=== PATIENT | male | born 1930 | race Caucasian/White ===

== ENCOUNTER 2016-08-01 14:30 | Inpatient (IN) | payer OTHER ==
[~2016-08-01] VITALS: Ht 180.3 cm; Wt 92.6 kg
--- NOTE | 2016-08-01 15:34 | DIAGNOSTIC IMAGING REPORT ---
PROCEDURE: XR CHEST 2 VIEW INDICATION: SHORTNESS OF BREATH TECHNIQUE: PA and lateral views. COMPARISON: Chest 03/28/2015 and 01/02/2010 FINDINGS: New right upper lobe and right lower lobe infiltrates. There is also a right pleural effusion. Left lung is clear and unchanged with the previously described a pleural plaque. Heart size is normal. IMPRESSION: 1. New right upper lobe right lower lobe infiltrates with a right pleural effusion.
--- NOTE | 2016-08-01 16:19 | ED ORDER SUMMARY ---
..... Patient: SUHAIL BILLS OrderSheet Located Within [facility] VisitID: [id number] [place] [address] 86y, M Registration Date/Time: 08/01/2016 ORDER SHEET Weight: 90.7 kg Allergies: Penicillins, Wellbutrin GENERAL ORDERS: Chest 2V Urgent (14:58 08/01/2016 Escobar MAYBERRY) (Ack 15:10 Immune Designouse ER Tech1) (16:21 SRoberts R.N.) Mold Shaker (Continuous) (14:58 08/01/2016 Escobar MAYBERRY) (15:11 SRoberts R.N.) CBC w Diff Urgent (14:58 08/01/2016 Escobar MAYBERRY) (Ack 15:10 kontoblick ER Bran) (16:20 SRoberts R.N.) CMP Urgent (14:58 08/01/2016 Escobar MAYBERRY) (Ack 15:10 kontoblick ER TechEddie) (16:20 SRoberts R.N.) UA-Culture if indicated Urgent (14:58 08/01/2016 Escobar MAYBERRY) (Ack 15:10 kontoblick ER Barn) (17:10 SRoberts R.N.) PT with INR Urgent (14:58 08/01/2016 Escobar MAYBERRY) (Ack 15:10 Immune Designouse ER Bran) (16:20 SRoberts R.N.) PTT Urgent (14:58 08/01/2016 Escobar MAYBERRY) (Ack 15:10 Immune Designouse ER Bran) (16:20 SRoberts R.N.) BNP Urgent (14:58 08/01/2016 Escobar MAYBERRY) (Ack 15:10 Immune Designouse ER Bran) (16:20 SRoberts R.N.) Amylase Urgent (14:58 08/01/2016 Escobar MAYBERRY) (Ack 15:10 Immune Designouse ER Bran) (16:20 SRoberts R.N.) Lipase Urgent (14:58 08/01/2016 Escobar MAYBERRY) (Ack 15:10 Immune Designouse ER TechEddie) (16:20 SRoberts R.N.) CPK Urgent (14:58 08/01/2016 Escobar MAYBERRY) (Ack 15:10 NDouse ER Tech1) (16:20 SRoberts R.N.) Troponin-I Urgent (14:58 08/01/2016 Escobar MAYBERRY) (Ack 15:10 NDouse ER Tech1) (16:20 SRoberts R.N.) Pulse oximeter (14:58 08/01/2016 Escobar MAYBERRY) (15:10 SRoberts R.N.) EKG - ER Stat (14:58 08/01/2016 Escobar MAYBERRY) (15:04 [facility] ER Tech1) Oxygen (2 L/min) (NC) (14:58 08/01/2016 Escobar MAYBERRY) (15:11 SRoberts R.N.) PCT (Procalcitonin) Urgent (14:59 08/01/2016 Escobar MAYBERRY) (Ack 15:10 NDouse ER Tech1) (16:21 SRoberts R.N.) Blood Culture (No) (N/A) Urgent (16:09 08/01/2016 Escobar MAYBERRY) (Ack 16:11 NDouse ER Tech1) (16:40 [facility] ER Tech1) MEDICATION ORDERS: DuoNeb Neb Tx 1 unit dose (NOW) (16:24 08/01/2016 Escobar MAYBERRY) (Ack 16:54 Miquel R.N.) (16:59 SRoberts R.N.) IV FLUIDS: IV Saline Lock (14:58 08/01/2016 Escobar MAYBERRY) (16:20 SRoberts R.N.) Solu-MEDROL IV 125 mg (NOW) (16:24 08/01/2016 Escobar MAYBERRY) (Ack 16:42 SRoberts R.N.) (16:56 SRoberts R.N.) Levaquin IV 750 mg/150 mL (NOW) (16:25 08/01/2016 Escobar MAYBERRY) (Ack 16:42 SRoberts R.N.) (17:00 SRoberts R.N.) ORDER SHEET NOTES: [Electronically signed by Deja Samyaoa R.N. (19:26 08/01/2016)] [Electronically signed by Deja Samayoa R.N. (19:28 08/01/2016)] [Electronically signed by Rojas Baptiste MD (04:40 08/03/2016)] [Electronically locked/signed by Deja Samayoa R.N. (19:26 08/01/2016)]
--- NOTE | 2016-08-01 16:19 | ED NURSING NOTES ---
Clinical Report - Nurses [facility] [address] [place] [address] 08/01/2016 14:32 Patient: SUHAIL BILLS TRIAGE Triage time 14:44. Acuity: LEVEL 3. Chief Complaint: COUGH and BACK PAIN and "HURTS ALL OVER" (coughing, spitting lt greenish/yellow, stuffy nose.). Alert. No acute distress. SEPSIS SCREEN: Sepsis Screen: negative. Negative (no infection suspected/documented). --14:55 Deja Samayoa R.N. 14:44 08/01/16. BP: 131/82. HR: 83. RR: 18. O2 saturation: 93%. Temp: 98.2 F. Pain level now: 8/10. Additional comments: hx of back pain . --14:55 Deja Samayoa R.N. Weight: 90.7 kg. Height/Length: 71 inches. BMI: 27.9. --14:53 Deja Samayoa R.N. Medications ASA Oral 81 mg q day. Calcium + D Oral. Carvedilol Oral (Tablet 3.125 mg) 1 tablet, BID. Fish Oil Oral. HCTZ 25 mg q day. Lipitor Oral 10 mg, daily. Lisinopril Oral 40 mg, daily. Vitamin D Oral. --14:49 Deja Samayoa R.N. Vitamins/Minerals Oral. --14:49 Deja Samayoa R.N. Medication/allergy information source: the patient. --14:55 Deja Samayoa R.N. Allergies Penicillins. Wellbutrin. --14:49 Deja Samayoa R.N. History Arrived by private vehicle. Historian: patient. Accompanied by family. Primary physician (Harpreet). Onset. (11 days ago). He has had chest congestion, chills and fatigue. Reports muscle aches. 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 PAST MEDICAL HX: Immunizations: status is unknown. SOCIAL HX: Smoker- current status unknown. No alcohol use or drug use. FALL RISK ASSESSMENT: Fall risk assessment completed. No fall risk identified. NUTRITIONAL RISK ASSESSMENT: The nutritional risk assessment revealed no deficiencies. FUNCTIONAL ASSESSMENT: Functional assessment: no impairments noted. LEARNING NEEDS ASSESSMENT: The learning needs assessment revealed no barriers. SKIN INTEGRITY ASSESSMENT: Skin integrity risk assessment completed. No skin integrity risk identified. --14:55 Deja Samayoa R.N. PROBLEMS: Sciatica. Bladder cancer. Hypertension. Hypercholesterolemia. Diabetes Mellitus. 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 --14:50 Deja Samayoa R.N. Chest Wall Pain [RuleOut]. --14:50 Deja Samayoa R.N. Cataracts. Rnee, rt. Hernia. Carpel tunnel rt . --14:52 Deja Samayoa R.N. ADDITIONAL SURGERIES: Abdominal Aortic Aneurysm Repair. Bladder tumor removal. Colonoscopy. Hernia Repair. Knee Surgery. --14:50 Deja Samayoa R.N. Interventions ID band on patient. To room. --14:55 Deja Samayoa R.N. PHYSICAL ASSESSMENT Ambulatory to room. Patient gowned. GENERAL / NEURO / PSYCH: Alert. Oriented X 4. Appears in pain and anxious. HEENT: Voice within normal limits. Mucous membranes are pink. RESPIRATORY: Respirations not labored. CVS: Capillary refill less than 2 seconds. SKIN: Skin is warm and dry. Normal skin turgor. --14:55 Deja Samayoa R.N. NURSING PROGRESS NOTES Pulse oximeter placed on patient; monitor alarms on. Patient gowned. Head of bed elevated. Two patient identifiers checked. Call light placed in reach. Side rails up x 2. Bed placed in lowest position. Brakes of bed on. Patient ready for evaluation. --14:56 Deja Samayoa R.N. EKG time: (1515). EKG was ordered, performed by a tech and shown to the ED physician. --15:18 Oneida Raphael ER Tech1 15:10 08/01/2016 Site #1 started via IV in the right forearm with an 20g angiocath, with aseptic technique and good blood return; one attempt. Blood drawn: rainbow set. Labeled in the presence of the patient and sent to the lab. Saline lock flushed with 10 mL saline. --16:20 Deja Samayoa R.N. 16:30 08/01/2016 Duoneb (Ipratropium-Albuterol) Neb TX 1 unit dose given. Given by the respiratory therapist. Allergies verified and confirmed 5 rights. --16:59 Deja Samayoa R.N. 16:50 08/01/2016 SOLU-MEDROL (MethylPREDNISolone Sodium Succ) IVP 125 mg given over 1 minute(s) via site #1. Allergies verified and confirmed 5 rights. IV patency established. IV site checked: no pain, redness, or swelling. IV flushed thoroughly pre- and post-medication administration. IVP given by RN. --16:56 Deja Samayoa R.N. 16:52 08/01/2016 Started 750 mg of Levaquin (Levofloxacin) IVPB in bag #1 100 mL; at 150 mL/hr over 90 minute(s) via site #1 via IV pump. Allergies verified and confirmed 5 rights. IV patency established. IV site checked: no pain, redness, or swelling. IV flushed thoroughly pre- and post-medication administration. --17:00 Deja Samayoa R.N. 17:45 08/01/16. BP: 111/59. HR: 58. RR: 16. O2 saturation: 100% on nasal cannula at 2 liters/minute. Temp: deferred. Pain level now: 2/10. Additional comments: Chronis back pain . 16:04 08/01/16. BP: 118/76. HR: 64. RR: 18. O2 saturation: 99% on nasal cannula at 2 liters/minute. --17:46 Deja Samayoa R.N. 18:46 08/01/2016 Levaquin IVPB Discontinued: bag #1 infused. Total amount infused: 100 mL. IV patency established. IV site checked: no pain, redness, or swelling. IV flushed thoroughly. --18:46 Deja Samayoa R.N. DISPOSITION / DISCHARGE Transported via stretcher by [employer]. Report was given to a nurse via a phone call. Report included patient's care, treatment, medications, reviewed medication reconcilliation, and condition (including any recent changes or anticipated changes). (HERMANN Suero). Patient's personal items include: shirt, pants, undergarments, coat, socks, shoes, hat, glasses and upper denture and lower denture, Wallet home with the son.; items were placed in belongings bag and transported with the patient. Collection of belongings was witnessed by 1 nurse. He did not have a wallet. Medication list reviewed and validated. --18:40 Deja Samayoa R.N. 17:45 08/01/16. BP: 111/59. HR: 58. RR: 16. O2 saturation: 100% on nasal cannula at 2 liters/minute. Temp: deferred. Pain level now: 08/24. Additional comments: Chronis back pain . 16:04 08/01/16. BP: 118/76. HR: 64. RR: 18. O2 saturation: 99% on nasal cannula at 2 liters/minute. 14:44 08/01/16. BP: 131/82. HR: 83. RR: 18. O2 saturation: 93%. Temp: 98.2 F. Pain level now: 02/21. Additional comments: hx of back pain . --18:40 Deja Samayoa R.N. 18:41 08/01/16. BP: 116/78 taken while sitting. HR: 65. RR: 18. O2 saturation: 96%. Temp: deferred. Pain level now: 09/21. --18:41 Deja Samayoa R.N. Departure time: 1907. --19:27 Deja Samayoa R.N. Locked/Released at 08/01/2016 19:28 by Deja Samayoa R.N.
--- NOTE | 2016-08-01 16:19 | ED CLINICAL REPORT ---
Clinical Report - Physicians/Mid Levels [facility] [address] [place] [address] 08/01/2016 14:32 Patient: SUHAIL BILLS Time Seen: 14:58. Arrived- By private vehicle. Historian- patient. HISTORY OF PRESENT ILLNESS Chief Complaint: DYSPNEA. This started about 10 days ago and is still present. It was gradual in onset and has been constant and waxing/waning. The dyspnea is described as moderate. The patient has had a cough, wheezing and dyspnea on exertion. He has had moderate amounts of yellow, green sputum. No fever, sweating episodes, chills or chest pain or discomfort. No calf pain, foot swelling, dizziness or palpitations. REVIEW OF SYSTEMS No chills, sweats, calf pain, chest pain or pedal edema. No palpitations, abdominal pain, constipation, diarrhea or nausea. No vomiting or urinary problems. All systems otherwise negative, except as recorded above. PAST HISTORY Problems: Cataracts. Rnee, rt. Hernia. Carpel tunnel rt . Sciatica. Bladder cancer. Hypercholesterolemia. Hypertension. Diabetes Mellitus. 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 Additional Surgeries: Abdominal Aortic Aneurysm Repair. Bladder tumor removal. Colonoscopy. Hernia Repair. Knee Surgery. Medications: Vitamins/Minerals Oral. ASA Oral 81 mg q day. Calcium + D Oral. Carvedilol Oral (Tablet 3.125 mg) 1 tablet, BID. Fish Oil Oral. HCTZ 25 mg q day. Lipitor Oral 10 mg, daily. Lisinopril Oral 40 mg, daily. Vitamin D Oral. Allergies: Penicillins. Wellbutrin. SOCIAL HISTORY Former smoker. ADDITIONAL NOTES The nursing notes have been reviewed. PHYSICAL EXAM Vital Signs: 08/01/2016 14:44 BP: 131/82. HR: 83. RR: 18. O2 saturation: 93%. Temp: 98.2 F. Pain level now: 8/10. Have been reviewed. Appearance: Alert. Eyes: Pupils equal, round and reactive to light. ENT: Pharynx normal. Uvula midline. Neck: Normal inspection. No jugular venous distention. Neck supple. CVS: Normal heart rate and rhythm. 1/6 holosystolic systolic murmur. Respiratory: No respiratory distress. Decreased air movement. Abdomen: Soft and nontender. No organomegaly. Back: Normal inspection. Skin: Skin warm and dry. Normal skin color. Normal skin turgor. Extremities: Extremities exhibit normal ROM. No calf tenderness. No lower extremity edema. LABS, X-RAYS, AND EKG EKG: Incomplete RBBB. Left axis deviation. Changes present when compared to prior EKG. (28 Mar 2015). The study has been independently viewed by me. Chest X-ray: (IMPRESSION: 1. New right upper lobe right lower lobe infiltrates with a right pleural effusion.). The X-rays were interpreted by the radiologist and contemporaneously by me. Laboratory Tests: CBC w Diff: (CLAUDIA: 08/01/2016 15:15) ( MsgRcvd 08/01/2016 15:51) Final results Test Result Flag Units (Reference) WHITE BLOOD COUNT 7.8 K/uL (4.5-11.5) RED BLOOD COUNT 3.76 L M/uL (4.50-5.90) HEMOGLOBIN 11.6 L gm/dL (13.5-17.5) HEMATOCRIT 35.8 L % (41.0-53.0) MEAN CELL VOLUME 95 fL (80-100) MEAN CORPUSCULAR HGB 31 pg (26-34) MEAN CORPUSCULAR HGB CONC 32 g/dL (31-37) RED CELL DISTRIBUTION WIDTH 12.8 % (11.6-14.8) PLATELET COUNT 314 K/uL (150-400) NEUTROPHIL % 71.1 % (50-75) LYMPH % 13.4 L % (25-40) MONO % 11.5 % (3-14) EOSINOPHIL % 4.0 % (0-4) BASOPHIL % 0 % (0-2) PT with INR: (CLAUDIA: 08/01/2016 15:15) ( MsgRcvd 08/01/2016 15:53) Final results Test Result Flag Units (Reference) INR 1.1 (0.8-1.2) Low Intensity Therapy: INR 1.5-2.0 PT range 18.5-23.1Mod.Intensity Therapy: INR 2.0-3.0 PT range 23.1-31.5High Intensity Therapy: INR 2.5-3.5 PT range 27.4-35.5High Intensity Therapy 2: INR 3.0-4.0 PT range 31.5-39.3 APTT 28 SECONDS (24-34) [id number]: (CLAUDIA: 08/01/2016 15:15) ( MsgRcvd 08/01/2016 16:24) Final results Test Result Flag Units (Reference) PROCALCITONIN 4.2 H ng/mL (0-0.5) PCT Concentration: Interpretation : Risk/option for action PCT <=0.5 ng/mL : Systemic : Low risk forinfection(sepsis): progression to severeis not likely. : systemic infection.Local bacterial : CAUTION-PCT levelsinfection is : below 0.5 ng/mL do notpossible. : exclude an infection,because localizedinfections (withoutsystemic signs) may beassociated with suchlow levels. If PCT ismeasured very earlyafter a bacterialchallenge (usually <6hours), these valuesmay still be low. Inthis case PCT shouldbe re-assessed 6-24hours later. PCT >0.5 and : Systemic infection: Moderate risk for<= 2 ng/mL : (sepsis) is : progression to severepossible, but : systemic infection.other conditions : The patient should beare known to : closely monitoredelevate PCT. : both clinically andby re-assessing PCTwithin 6-24 hours. PCT > 2 ng/mL : Systemic infection: High risk for(sepsis) is likely: progression to severeunless other : systemic infection.causes are known. : PCT >= 10 ng/mL : Important systemic: High likelihood ofinflammatory : severe sepsis orresponse, almost : septic shock.exclusively due to:severe bacterial :sepsis or septic :shock. : BNP: (CLAUDIA: 08/01/2016 15:15) ( [facility] 08/01/2016 15:50) Final results Test Result Flag Units (Reference) B-TYPE NATRIURETIC PEPTIDE 139 H pg/ml (5-100) CMP: (CLAUDIA: 08/01/2016 15:15) ( [facility] [place] 08/01/2016 15:49) Final results Test Result Flag Units (Reference) GLUCOSE 166 H mg/dL (70-110) BUN 26 H mg/dL (7-18) CREATININE 1.1 mg/dL (0.6-1.3) Estimated GFR >60 mL/min Estimated GFR- >60 mL/min Note: Persistent reduction over 3 months in eGFR<60 mL/min/1.73 m2 defines CKD. Patients with eGFR values>=60 mL/min/1.73 m2 may also have CKD if evidence ofpersistent proteinuria. Additional information may be foundat www.kidney.org. SODIUM 143 mmol/L (136-145) POTASSIUM 4.2 mmol/L (3.5-5.1) CHLORIDE 104 mmol/L (98-107) CARBON DIOXIDE 31 mmol/L (21-32) CALCIUM 9.7 mg/dL (8.5-10.1) TOTAL PROTEIN 7.2 g/dL (6.4-8.2) ALBUMIN 3.0 L g/dL (3.3-5.0) BILIRUBIN, TOTAL 0.6 mg/dL (0.0-1.0) ALKALINE PHOSPHATASE 93 U/L (46-116) AST (SGOT) 24 U/L (15-37) ALT (SGPT) 19 U/L (12-78) LIPASE 92 U/L (73-393) AMYLASE 56 U/L (25-115) CPK 68 U/L (24-260) TROPONIN I <0.05 ng/mL (0.00-1.5) TROPONIN REFERENCE RANGE:<0.1 NEGATIVE0.1-1.5 INDETERMINANT>1.5 POSITIVE . PROGRESS AND PROCEDURES Course of Care: Patient is stable. Discussed case with patient's primary care provider, (Harpreet). Reviewed test results and need for additional work-up. Agreed upon treatment plan, need for patient follow-up and decision to place in observation. Health care provider will see patient in hospital. Patient/family counseled. Old medical records reviewed. Disposition orders written (in [facility]). Disposition: Admitted. Observation. CLINICAL IMPRESSION Pneumonia. (Electronically signed by Rojas Baptiste MD 08/03/2016 4:40)
--- NOTE | 2016-08-01 16:19 | ED ORDER SUMMARY ---
..... Patient: SUHAIL BILLS OrderSheet [facility] VisitID: [id number] [place] [address] 86y, M Registration Date/Time: 08/01/2016 ORDER SHEET Weight: 90.7 kg Allergies: Penicillins, Wellbutrin GENERAL ORDERS: Chest 2V Urgent (14:58 08/01/2016 Escobar MAYBERRY) (Ack 15:10 Colorescienceouse ER Tech1) (16:21 SRoberts R.N.) Product Examiner (Continuous) (14:58 08/01/2016 Escobar MAYBERRY) (15:11 SRoberts R.N.) CBC w Diff Urgent (14:58 08/01/2016 Escobar MAYBERRY) (Ack 15:10 Noosh ER Bran) (16:20 SRoberts R.N.) CMP Urgent (14:58 08/01/2016 Escobar MAYBERRY) (Ack 15:10 Noosh ER TechEddie) (16:20 SRoberts R.N.) UA-Culture if indicated Urgent (14:58 08/01/2016 Escobar MAYBERRY) (Ack 15:10 Noosh ER Bran) (17:10 SRoberts R.N.) PT with INR Urgent (14:58 08/01/2016 Escobar MAYBERRY) (Ack 15:10 Colorescienceouse ER Bran) (16:20 SRoberts R.N.) PTT Urgent (14:58 08/01/2016 Escobar MAYBERRY) (Ack 15:10 Colorescienceouse ER Bran) (16:20 SRoberts R.N.) BNP Urgent (14:58 08/01/2016 Escobar MAYBERRY) (Ack 15:10 Colorescienceouse ER Bran) (16:20 SRoberts R.N.) Amylase Urgent (14:58 08/01/2016 Escobar MAYBERRY) (Ack 15:10 Colorescienceouse ER Bran) (16:20 SRoberts R.N.) Lipase Urgent (14:58 08/01/2016 Escobar MAYBERRY) (Ack 15:10 Colorescienceouse ER TechEddie) (16:20 SRoberts R.N.) CPK Urgent (14:58 08/01/2016 Escobar MAYBERRY) (Ack 15:10 MNouse ER Tech1) (16:20 SRoberts R.N.) Troponin-I Urgent (14:58 08/01/2016 Escobar MAYBERRY) (Ack 15:10 MNouse ER Tech1) (16:20 SRoberts R.N.) Pulse oximeter (14:58 08/01/2016 Escobar MAYBERRY) (15:10 SRoberts R.N.) EKG - ER Stat (14:58 08/01/2016 Escobar MAYBERRY) (15:04 [facility] ER Tech1) Oxygen (2 L/min) (NC) (14:58 08/01/2016 Escobar MAYBERRY) (15:11 SRoberts R.N.) PCT (Procalcitonin) Urgent (14:59 08/01/2016 Escobar MAYBERRY) (Ack 15:10 MNouse ER Tech1) (16:21 SRoberts R.N.) Blood Culture (No) (N/A) Urgent (16:09 08/01/2016 Escobar MAYBERRY) (Ack 16:11 MNouse ER Tech1) (16:40 [facility] ER Tech1) MEDICATION ORDERS: DuoNeb Neb Tx 1 unit dose (NOW) (16:24 08/01/2016 Escobar MAYBERRY) (Ack 16:54 Miquel R.N.) (16:59 SRoberts R.N.) IV FLUIDS: IV Saline Lock (14:58 08/01/2016 Escobar MAYBERRY) (16:20 SRoberts R.N.) Solu-MEDROL IV 125 mg (NOW) (16:24 08/01/2016 Escobar MAYBERRY) (Ack 16:42 SRoberts R.N.) (16:56 SRoberts R.N.) Levaquin IV 750 mg/150 mL (NOW) (16:25 08/01/2016 Escobar MAYBERRY) (Ack 16:42 SRoberts R.N.) (17:00 SRoberts R.N.) ORDER SHEET NOTES: [Electronically signed by Deja Samayoa R.N. (19:26 08/01/2016)] [Electronically signed by Deja Samayoa R.N. (19:28 08/01/2016)] [Electronically signed by Rojas Baptiste MD (04:40 08/03/2016)] [Electronically locked/signed by Deja Samayoa R.N. (19:26 08/01/2016)]
[2016-08-01 19:26] VITALS: BP 138/74
--- NOTE | 2016-08-01 20:06 | HISTORY AND PHYSICAL ---
ADMITTED: 08/01/2016 CHIEF COMPLAINT: 1. Shortness of breath HISTORY OF PRESENT ILLNESS: An 86-year-old male with recent bladder cancer, presents with 10-day history of increasing shortness of breath. He states it has been getting better and worse at times, worse with exertion. It was particularly worse after a visit to his oncologist recently. He has been coughing up yellow-green sputum and has felt sweats at times. He denies fevers, chills, chest pain. He also denies swelling in the legs or palpitations. MEDICAL/SURGICAL HISTORY: Past medical history: Remarkable for bladder cancer, high blood pressure and also recent low blood pressures, diabetes, anemia, cataracts, carpal tunnel syndrome, sciatica, hyperlipidemia, basal cell carcinoma. Surgeries: Carpal tunnel surgery right hand 2004, basal cell carcinoma, left ear, left side hernia 2006, abdominal aortic aneurysm 2007, carpal tunnel left hand 2009, right knee replacement 2009, epidural steroid injections 2014, cataract both eyes 2015. The patient has also had bladder tumor removal and colonoscopies. MEDICATIONS: 1. Multivitamins 1 p.o. daily. 2. Aspirin 81 mg p.o. daily. 3. Calcium with vitamin D 1 p.o. daily. 4. Carvedilol 3.125 mg p.o. b.i.d. 5. HCTZ 25 mg p.o. daily. 6. Lipitor 10 mg p.o. daily. 7. Lisinopril 40 mg p.o. daily. 8. Vitamin D once daily. 9. Fish oil once daily. ALLERGIES: 1. PENICILLIN. 2. WELLBUTRIN. SOCIAL HISTORY: male, Kiswahili sikhism, retired. Smoking: Positive history , quit 2011. Alcohol: None. Drug use: None. Previously worked on [employer] with dust and asbestos exposure. CODE STATUS: The patient and son are present on interview and they request NO CODE STATUS. The patient does have a living will and durable power of patent prosecution attorney. FAMILY HISTORY: Father had diabetes. Mother had multiple sclerosis. Children are healthy. REVIEW OF SYSTEMS: The patient gives history of recent weight loss and pain. Skin: Denies rashes, dryness or changes. Eyes: Positive tearing. Denies pain, blurry vision, cataracts or vision loss. Ears: Denies drainage, earache, ringing, hearing loss. Nose: Denies nose bleeds, discharge or sinus pain. Mouth: Denies gum soreness, dental problems or pain. Throat: Denies hoarseness, swelling, sore throat, or trouble swallowing. Lungs: Admits to shortness of breath, cough, pneumonia, wheezing and sputum production. Heart: Admits to blood pressure, both high and low, pain in muscles with walking, shortness of breath, worse recently with lying flat. Urinary: History of bladder infection; admits to increased urination at night. Gastrointestinal: Positive for loss of appetite. Negative for GERD, diarrhea, constipation, melena, bright red blood per rectum. Joints: Positive history of stiffness, pain, muscle cramps and back ache. Neurologic: Positive for balance problems. Hematologic: Positive for anemia and easy bruising. Endocrine: Positive for diabetes. Psychological: Positive for depression, difficulty sleeping. PHYSICAL EXAMINATION: VITAL SIGNS: Blood pressure 131/82, heart rate 83, respirations 18, SaO2 93%, temperature 98.2. HEENT: Clear. NECK: Supple without adenopathy or thyromegaly. CHEST: Clear to auscultation except for some crackles in the bases and mild expiratory wheeze. HEART: Regular rate and rhythm without murmur. ABDOMEN: Positive bowel sounds. Soft, nontender, without hepatosplenomegaly or masses. BACK: Straight without CVA tenderness. EXTREMITIES: Without cyanosis, clubbing, or edema. GENITAL: Deferred. RECTAL: Deferred. NEUROLOGIC: Intact and symmetric. LAB/IMAGING: Laboratories: WBC 7.8, hemoglobin 11.6, hematocrit 35.8. INR 1.1. Procalcitonin 4.2. BNP 139. Glucose 166, BUN 26, creatinine 1.1, sodium 143, potassium 4.2, chloride 104, bicarb 31. Total bilirubin 0.6, alk phos 93, AST 24, ALT 19, amylase 56. CPK 68. Troponin less than 0.05. EKG: Shows incomplete left bundle branch block and LAD with no acute changes. Chest x-ray: Shows right lower lobe infiltrate and right pleural effusion. IMPRESSION: 1. Pneumonia. 2. Bladder cancer with ongoing treatment. 3. Diabetes mellitus. 4. Hypertension. 5. Hyperlipidemia. PLAN: Admit to [facility] for IV antibiotics, oxygen supplementation, nebulized bronchodilators, IV hydration and monitoring risks, benefits, and alternatives to treatment are discussed with patient and son. The patient is advised that while pneumonia is serious, he appears to be tolerating this relatively well and it likely will resolve with antibiotic treatment as noted above. The patient request NO CODE STATUS. This is confirmed by his son and NO CODE will be ordered. The patient will also be treated with deep venous thrombosis prophylaxis with sequential compression device treatment.
[2016-08-01 22:27] VITALS: BP 129/59
[2016-08-02] MEDS ORDERED: ASPIRIN 81 LOW81 MG PO (00:50)
[2016-08-02] MEDS ORDERED: CALCIUM + D PO (00:50)
[2016-08-02] MEDS ORDERED: CARVEDILOL3.125 MG PO (00:51)
[2016-08-02] MEDS ORDERED: FISH OIL500 MG PO (00:52)
[2016-08-02] MEDS ORDERED: HCTZ/TRIAMTEREN1 TA1 PO (00:53)
[2016-08-02] MEDS ORDERED: LIPITOR10 MG PO (00:53)
[2016-08-02] MEDS ORDERED: LISINOPRIL10 MG PO (00:54)
[2016-08-02] MEDS ORDERED: VITAMIN D-11000 UNIT PO (00:55)
[2016-08-02] MEDS ORDERED: VITAMINS & MINERALS PO (00:56)
[2016-08-02 01:55] VITALS: BP 123/59
[2016-08-02 06:19] VITALS: BP 118/61
--- NOTE | 2016-08-02 07:09 | Progress Note ---
Subjective General An 86-year-old male with DM, recent bladder cancer, and 10-day history of increasing shortness of breath. Diagnosed with pneumonia in ER, RLL. He has been coughing up yellow-green sputum and has felt sweats at times. Slept poorly last night, "but I never sleep much." Declines sleeping meds. Still coughing and feels wheezy but improved. Physical Exam Vital Signs / I&Os Vital Signs Date Time Temp Pulse Resp B/P Pulse O2 O2 Flow FiO2 Ox Delivery Rate 08/02 0619 98.2 74 18 118/61 94 Nasal 2.0 Cannula 08/02 0547 2.0 08/02 0155 98.4 70 16 123/59 93 Nasal 2.0 Cannula 08/02 0044 2.0 08/01 2344 Nasal 2.0 Cannula 08/01 2227 98.2 65 18 129/59 93 Room Air 2.0 08/01 2005 2.0 08/01 1948 66 08/01 1926 98.4 66 18 138/74 90 Room Air 08/01 1900 Nasal 2.0 Cannula 08/01 1625 2.0 I&O 08/01 0800 08/01 1600 08/02 0000 Intake Total 847 Output Total 250 Balance 597 General Appearance Alert, Oriented X3, No acute distress Lungs Bilateral crackles and wheeze. Cardiovascular Regular rate and rhythm Abdomen Soft, No tenderness Extremities No edema Skin No Rashes LAB Results Laboratory Tests 08/01 08/01 08/01 08/01 1515 1515 1515 1705 Chemistry Plasma Sodium (136 - 145 mmol/L) 143 Plasma Potassium (3.5 - 5.1 mmol/L) 4.2 Plasma Chloride (98 - 107 mmol/L) 104 CO2 (Enzymatic) (21 - 32 mmol/L) 31 BUN (7 - 18 mg/dL) 26 Creatinine (0.6 - 1.3 mg/dL) 1.1 Est GFR ( Amer) (mL/min) >60 Est GFR (Non-Af Amer) (mL/min) >60 Glucose (70 - 110 mg/dL) 166 Plasma Calcium (8.5 - 10.1 mg/dL) 9.7 Total Bilirubin (0.0 - 1.0 mg/dL) 0.6 AST (15 - 37 U/L) 24 ALT (12 - 78 U/L) 19 Alkaline Phosphatase (46 - 116 U/L) 93 Creatine Kinase (24 - 260 U/L) 68 Troponin (0.00 - 1.5 ng/mL) <0.05 B-Natriuretic Peptide (5 - 100 pg/ml) 139 Total Protein (6.4 - 8.2 g/dL) 7.2 Albumin (3.3 - 5.0 g/dL) 3.0 Amylase (25 - 115 U/L) 56 Lipase (73 - 393 U/L) 92 Procalcitonin (0 - 0.5 ng/mL) 4.2 Coagulation INR (0.8 - 1.2) 1.1 APTT (24 - 34 SECONDS) 28 Hematology WBC (4.5 - 11.5 K/uL) 7.8 RBC (4.50 - 5.90 M/uL) 3.76 Hgb (13.5 - 17.5 gm/dL) 11.6 Hct (41.0 - 53.0 %) 35.8 MCV (80 - 100 fL) 95 MCH (26 - 34 pg) 31 RDW (11.6 - 14.8 %) 12.8 Neut % (Auto) (50 - 75 %) 71.1 Lymph % (Auto) (25 - 40 %) 13.4 [place] % (Auto) (3 - 14 %) 11.5 Eos % (Auto) (0 - 4 %) 4.0 Baso % (Auto) (0 - 2 %) 0 Plt Count, EDTA (150 - 400 K/uL) 314 PUBS MCHC (31 - 37 g/dL) 32 Urines Urine Color YELLOW Urine Appearance CLEAR Urine pH (5.0 - 8.0) 5.5 Ur Specific [place] (1.010 - 1.030) >= 1.030 Urine Protein (NEGATIVE) NEGATIVE Urine Ketones (NEGATIVE) TRACE Urine Blood (NEGATIVE) NEGATIVE Urine Nitrite (NEGATIVE) NEGATIVE Urine Bilirubin (NEGATIVE) NEGATIVE Urine Urobilinogen (0.2 - 1.0 EU/dL) 0.2 Ur Leukocyte Esterase (NEGATIVE) NEGATIVE Urine RBC (0 - 1 rbc/hpf) 1-3 Urine WBC (0 - 1 wbc/hpf) 0-1 Ur Epithelial Cells (0 - 5 EPI/hpf) NONE SEEN Urine Bacteria (NONE SEEN) TRACE (<1+) Urine Glucose (NEGATIVE) NEGATIVE Urine Comment CULT NOT INDICATED 08/02 08/02 0540 0540 Chemistry Plasma Sodium (136 - 145 mmol/L) 137 Plasma Potassium (3.5 - 5.1 mmol/L) 4.3 Plasma Chloride (98 - 107 mmol/L) 101 CO2 (Enzymatic) (21 - 32 mmol/L) 26 BUN (7 - 18 mg/dL) 31 Creatinine (0.6 - 1.3 mg/dL) 1.3 Est GFR ( Amer) (mL/min) >60 Est GFR (Non-Af Amer) (mL/min) 55.63 Glucose (70 - 110 mg/dL) 284 Hemoglobin A1c % Pending Plasma Calcium (8.5 - 10.1 mg/dL) 8.5 Plasma Magnesium (1.8 - 2.4 mg/dL) 1.5 Total Bilirubin (0.0 - 1.0 mg/dL) 0.5 AST (15 - 37 U/L) 20 ALT (12 - 78 U/L) 18 Alkaline Phosphatase (46 - 116 U/L) 77 Total Protein (6.4 - 8.2 g/dL) 6.1 Albumin (3.3 - 5.0 g/dL) 2.5 Hematology WBC (4.5 - 11.5 K/uL) 7.8 RBC (4.50 - 5.90 M/uL) 3.28 Hgb (13.5 - 17.5 gm/dL) 10.2 Hct (41.0 - 53.0 %) 31.4 MCV (80 - 100 fL) 96 MCH (26 - 34 pg) 31 RDW (11.6 - 14.8 %) 13.0 Neut % (Auto) (50 - 75 %) 86.6 Lymph % (Auto) (25 - 40 %) 11.0 [place] % (Auto) (3 - 14 %) 2.2 Eos % (Auto) (0 - 4 %) 0 Baso % (Auto) (0 - 2 %) 0.2 Plt Count, EDTA (150 - 400 K/uL) 273 PUBS MCHC (31 - 37 g/dL) 32 Microbiology Date/Time Procedure - Status Source Growth 08/01 1643 Blood Culture - RECD BLOOD 08/01 163 Blood Culture - RECD BLOOD Assessment and Plan Problem List 1. Pneumonia Plan Improving on antibiotics. 2. Diabetes mellitus type 2 in nonobese Plan Stable with sliding scale. 3. Bladder cancer Plan Care per urology.
[2016-08-02 10:39] VITALS: BP 117/61
[2016-08-02 14:25] VITALS: BP 123/63
[2016-08-02 18:14] VITALS: BP 107/60
[2016-08-02] MEDS ORDERED: VITAMIN B12 PO (19:18)
[2016-08-02 22:30] VITALS: BP 110/64
[2016-08-03 01:21] VITALS: BP 130/68
--- NOTE | 2016-08-03 04:41 | ED MED RECONCILIATION SUMMARY ---
Patient: SUHAIL BILLS Medication Reconciliation Report [facility] VisitID: [id number] [address] [place] [address] 86y, M Registration Date/Time: 08/01/2016 Weight: 90.7 kg Height/Length: 71 in. BMI: 27.9 ALLERGIES: Penicillins, Wellbutrin The patient's Home Medications are listed below: THE FOLLOWING MEDICATIONS NEED TO BE RECONCILED: ASA Oral 81 mg q day Calcium + D Oral Carvedilol Oral (3.125 mg) 1 tablet, BID Fish Oil Oral HCTZ 25 mg q day Lipitor Oral 10 mg, daily Lisinopril Oral 40 mg, daily Vitamin D Oral Vitamins/Minerals Oral The source(s) of the original Home Medication information: patient The following Medications were given to the patient in the Emergency Department: SOLU-MEDROL [IVP] IVP 125 mg, administered: 08/01/2016 4:50:00 PM Duoneb [Neb Tx] Neb TX 1 unit dose, administered: 08/01/2016 4:30:00 PM Levaquin [IVPB] IVPB bolus 0, then 750 mg 150 mL/hr, administered: 08/01/2016 4:52:00 PM The following Medications were prescribed to the patient: None.
--- NOTE | 2016-08-03 04:41 | ED MAR SUMMARY ---
..... Medication Administration Record [facility] [address] [place] [address] Patient: SUHAIL BILLS Visit ID: [id number] 86y, M Weight: 90.7 kg Height/Length: 71 in BMI: 27.9 ALLERGIES: Penicillins, Wellbutrin Given 16:30 08/01/2016 Deja Samayoa R.N. Medication Administered: DUONEB [NEB TX] (IPRATROPIUM-ALBUTEROL), Dose: 1 unit dose Neb TX. Medication Ordered: DuoNeb Neb Tx 1 unit dose (NOW). Given 16:50 08/01/2016 Deja Samayoa R.N. Medication Administered: SOLU-MEDROL [IVP] (METHYLPREDNISOLONE SODIUM SUCC), Dose: 125 mg IVP over 1 minute(s), Site: #1 right forearm. Medication Ordered: Solu-MEDROL IV 125 mg (NOW). Start 16:52 08/01/2016 Deja Samayoa R.N., Stop 18:46 08/01/2016 Deja Samayoa R.N. Medication Administered: LEVAQUIN [IVPB] (LEVOFLOXACIN), Dose: 750 mg IVPB over 90 minute(s), Rate: 150 mL/hr, Dispensed: 100 mL bag, Site: #1 right forearm. Medication Ordered: Levaquin IV 750 mg/150 mL (NOW).
--- NOTE | 2016-08-03 04:41 | ED MAR SUMMARY ---
..... Medication Administration Record [facility] [address] [place] [address] Patient: SUHAIL BILLS Visit ID: [id number] 86y, M Weight: 90.7 kg Height/Length: 71 in BMI: 27.9 ALLERGIES: Penicillins, Wellbutrin Given 16:30 08/01/2016 Deja Samayoa R.N. Medication Administered: DUONEB [NEB TX] (IPRATROPIUM-ALBUTEROL), Dose: 1 unit dose Neb TX. Medication Ordered: DuoNeb Neb Tx 1 unit dose (NOW). Given 16:50 08/01/2016 Deja Samayoa R.N. Medication Administered: SOLU-MEDROL [IVP] (METHYLPREDNISOLONE SODIUM SUCC), Dose: 125 mg IVP over 1 minute(s), Site: #1 right forearm. Medication Ordered: Solu-MEDROL IV 125 mg (NOW). Start 16:52 08/01/2016 Deja Samayoa R.N., Stop 18:46 08/01/2016 Deja Samayoa R.N. Medication Administered: LEVAQUIN [IVPB] (LEVOFLOXACIN), Dose: 750 mg IVPB over 90 minute(s), Rate: 150 mL/hr, Dispensed: 100 mL bag, Site: #1 right forearm. Medication Ordered: Levaquin IV 750 mg/150 mL (NOW).
--- NOTE | 2016-08-03 04:41 | ED DISCHARGE INSTRUCTIONS ---
Patient: SUHAIL BILLS General Instructions [facility] VisitID: [id number] [address] [place] [address] 86y, M Registration Date/Time: 08/01/2016 Pneumonia. (Electronically signed by Rojas Baptiste MD 08/03/2016 4:40)
--- NOTE | 2016-08-03 04:41 | ED DISCHARGE INSTRUCTIONS ---
Patient: SUHAIL BILLS General Instructions [facility] VisitID: [id number] [address] [place] [address] 86y, M Registration Date/Time: 08/01/2016 Pneumonia. (Electronically signed by Rojas Baptiste MD 08/03/2016 4:40)
--- NOTE | 2016-08-03 04:41 | ED MED RECONCILIATION SUMMARY ---
Patient: SUHAIL BILLS Medication Reconciliation Report [facility] VisitID: [id number] [address] [place] [address] 86y, M Registration Date/Time: 08/01/2016 Weight: 90.7 kg Height/Length: 71 in. BMI: 27.9 ALLERGIES: Penicillins, Wellbutrin The patient's Home Medications are listed below: THE FOLLOWING MEDICATIONS NEED TO BE RECONCILED: ASA Oral 81 mg q day Calcium + D Oral Carvedilol Oral (3.125 mg) 1 tablet, BID Fish Oil Oral HCTZ 25 mg q day Lipitor Oral 10 mg, daily Lisinopril Oral 40 mg, daily Vitamin D Oral Vitamins/Minerals Oral The source(s) of the original Home Medication information: patient The following Medications were given to the patient in the Emergency Department: SOLU-MEDROL [IVP] IVP 125 mg, administered: 08/01/2016 4:50:00 PM Duoneb [Neb Tx] Neb TX 1 unit dose, administered: 08/01/2016 4:30:00 PM Levaquin [IVPB] IVPB bolus 0, then 750 mg 150 mL/hr, administered: 08/01/2016 4:52:00 PM The following Medications were prescribed to the patient: None.
[2016-08-03 05:49] VITALS: BP 118/64
--- NOTE | 2016-08-03 06:59 | Progress Note ---
Subjective General An 86-year-old male with DM, recent bladder cancer, and 10-day history of increasing shortness of breath. Diagnosed with pneumonia in ER, RLL. He has been coughing up yellow-green sputum and has felt sweats at times. Slept poorly again last night, "but I never sleep much." Declines sleeping meds. Coughing some. Ambulated around loja without oxygen but felt weak. Denies cp/palp/sob/dizzy. Respiratory Cough, SOB w/exertion. Physical Exam Vital Signs / I&Os Vital Signs Date Time Temp Pulse Resp B/P Pulse O2 O2 Flow FiO2 Ox Delivery Rate 08/03 0549 98.1 83 18 118/64 93 Nasal 2.0 Cannula 08/03 0350 2.0 08/03 0121 98.1 82 16 130/68 93 Nasal 2.0 Cannula 08/02 2348 2.0 08/02 2230 98.1 68 20 110/64 91 Nasal 2.0 Cannula 08/02 2009 Nasal 2.0 Cannula 08/02 1952 2.0 08/02 1814 98.2 84 18 107/60 94 Nasal 2.0 Cannula 08/02 1812 78 08/02 1707 Nasal 2.0 Cannula 08/02 1551 2.0 08/02 1425 97.7 77 18 123/63 95 Nasal 2.0 Cannula 08/02 1256 2.0 08/02 1039 98.2 81 18 117/61 93 Nasal 2.0 Cannula 08/02 0832 92 08/02 0830 2.0 08/02 0823 2.0 I&O 08/02 0800 08/02 1600 08/03 0000 Intake Total 1903 1301 526 Output Total 650 550 500 Balance 1253 751 26 General Appearance Alert, Oriented X3, Cooperative, No acute distress Lungs Few crackles in bases. Cardiovascular Regular rate and rhythm Abdomen Normal bowel sounds, Soft, No tenderness Extremities No edema Skin No Rashes Assessment and Plan Problem List 1. Pneumonia Plan Improving on antibiotics. Will wean O2. 2. Diabetes mellitus type 2 in nonobese Plan BG high on steroids. Will taper steroids. 3. Bladder cancer Plan Stable.
[2016-08-03 10:19] VITALS: BP 115/61
[2016-08-03 14:35] VITALS: BP 136/72
[2016-08-03 18:18] VITALS: BP 128/67
[2016-08-03 23:13] VITALS: BP 144/82
[2016-08-04 01:58] VITALS: BP 130/78
[2016-08-04 06:46] VITALS: BP 143/70
--- NOTE | 2016-08-04 08:12 | DIAGNOSTIC IMAGING REPORT ---
PROCEDURE: XR CHEST 2 VIEW INDICATION: pneumonia, follow-up TECHNIQUE: PA and lateral view. COMPARISON: Chest x-ray 08/01/2016 FINDINGS: No significant change in the rounded right mid lung opacity and small right basilar infiltrate with small right pleural effusion. Calcified left pleural plaques. Cardiovascular structures are normal. Bony thorax is unremarkable. IMPRESSION: 1. No significant change in the right mid lung then opacity which probably represents pneumonia but underlying mass is not excluded. Recommend follow-up chest x-ray 2. No significant change in the right basilar infiltrate and small right pleural effusion 3. Calcified left pleural plaques consistent with asbestosis.
--- NOTE | 2016-08-04 08:14 | Progress Note ---
Subjective General An 86-year-old male with DM, recent bladder cancer, and 10-day history of increasing shortness of breath. Diagnosed with pneumonia in ER, RLL. He has been coughing up yellow-green sputum and has felt sweats at times. Slept poorly again last night, "but I never sleep much." Declines sleeping meds. Coughing some. Ambulated around loja without oxygen but felt weak. Denies cp/palp/sob/dizzy. Physical Exam Vital Signs / I&Os Vital Signs Date Time Temp Pulse Resp B/P Pulse O2 O2 Flow FiO2 Ox Delivery Rate 08/04 0646 97.7 73 21 143/70 96 Room Air 08/04 0500 88 Room Air 08/04 0158 97.9 83 18 130/78 93 Nasal 2.0 Cannula 08/03 2313 97.9 89 16 144/82 94 Nasal 2.0 Cannula 08/03 2135 Nasal 2.0 Cannula 08/03 2003 2.0 08/03 1818 98.1 83 20 128/67 93 Nasal 2.0 Cannula 08/03 1713 70 08/03 1600 2.0 08/03 1435 97.2 76 14 136/72 95 Nasal 2.0 Cannula 08/03 1145 2.0 08/03 1019 98.1 80 17 115/61 94 Nasal 2.0 Cannula 08/03 0907 Nasal Cannula 08/03 0834 32.0 08/03 0817 78 I&O 08/03 0800 08/03 1600 08/04 0000 Intake Total 7663 858 5701 Output Total 925 600 750 Balance 579 170 450 General Appearance Alert, Oriented X3, Cooperative, No acute distress Lungs FEW RHONCHI Cardiovascular Regular rate and rhythm Abdomen Normal bowel sounds, Soft, No tenderness Extremities No edema Skin No Rashes LAB Results Laboratory Tests 08/04 523 Chemistry Plasma Sodium (136 - 145 mmol/L) 137 Plasma Potassium (3.5 - 5.1 mmol/L) 4.1 Plasma Chloride (98 - 107 mmol/L) 104 CO2 (Enzymatic) (21 - 32 mmol/L) 28 BUN (7 - 18 mg/dL) 31 Creatinine (0.6 - 1.3 mg/dL) 1.1 Est GFR ( Amer) (mL/min) >60 Est GFR (Non-Af Amer) (mL/min) >60 Glucose (70 - 110 mg/dL) 144 Plasma Calcium (8.5 - 10.1 mg/dL) 8.1 Plasma Magnesium (1.8 - 2.4 mg/dL) 2.0 Total Bilirubin (0.0 - 1.0 mg/dL) 0.6 AST (15 - 37 U/L) 25 ALT (12 - 78 U/L) 21 Alkaline Phosphatase (46 - 116 U/L) 66 Total Protein (6.4 - 8.2 g/dL) 5.7 Albumin (3.3 - 5.0 g/dL) 2.4 Hematology WBC (4.5 - 11.5 K/uL) 16.3 RBC (4.50 - 5.90 M/uL) 3.27 Hgb (13.5 - 17.5 gm/dL) 10.1 Hct (41.0 - 53.0 %) 31.4 MCV (80 - 100 fL) 96 MCH (26 - 34 pg) 31 RDW (11.6 - 14.8 %) 13.4 Neut % (Auto) (50 - 75 %) 84.5 Lymph % (Auto) (25 - 40 %) 7.6 [place] % (Auto) (3 - 14 %) 7.7 Eos % (Auto) (0 - 4 %) 0.2 Baso % (Auto) (0 - 2 %) 0 Plt Count, EDTA (150 - 400 K/uL) 256 PUBS MCHC (31 - 37 g/dL) 32 Assessment and Plan Problem List 1. Pneumonia Plan Clinically improved but CXR is not improved and WBC has increased, possibly due to prednisone. Will ambulate, wean off O2(done) and recheck labs this afternoon hoping to d/c home this evening. 2. Diabetes mellitus type 2 in nonobese 3. Bladder cancer
[2016-08-04 10:20] VITALS: BP 119/70
[2016-08-04 14:30] VITALS: BP 136/73
[2016-08-04 19:02] VITALS: BP 138/75
[2016-08-04 22:19] VITALS: BP 142/77
[2016-08-05 02:20] VITALS: BP 144/83
[2016-08-05 07:09] VITALS: BP 150/86
[2016-08-05] MEDS ORDERED: COMBIVENT RESPIMAT PO (07:46)
[2016-08-05] MEDS ORDERED: LEVOFLOXACIN500 MG PO (07:47)
--- NOTE | 2016-08-05 07:52 | Provider's Discharge Care Plan ---
Problem, Goal, Plan Problem List 1. Pneumonia Goals: Improve disease control Instructions: Take meds as directed, Use inspiratory spirometer regularly 2. Diabetes mellitus type 2 in nonobese Goals: Improve disease control Instructions: Take meds as directed, Sugars will improve off the steroids. 3. Bladder cancer Goals: Improved health/wellness Instructions: per urology 4. COPD (chronic obstructive pulmonary disease) Goals: Improved health/wellness Instructions: Take meds as directed, Inhaler to help open up lungs.
--- NOTE | 2016-08-05 13:13 | DISCHARGE SUMMARY ---
ADMIT DATE: 08/01/2016 DISCHARGE DATE: 08/05/2016 ADMITTING DIAGNOSES: 1. Pneumonia. 2. Bladder cancer with ongoing treatment. 3. Diabetes mellitus. 4. Hypertension. 5. Hyperlipidemia DISCHARGE DIAGNOSES: 1. Pneumonia. 2. Bladder cancer with ongoing treatment. 3. Diabetes mellitus. 4. Hypertension. 5. Hyperlipidemia. 6. Asbestosis with possible mild concomitant chronic obstructive pulmonary disease. BRIEF HISTORY: The patient presented with shortness of breath and cough to [facility] emergency department. Chest x-ray revealed pneumonia, and the patient was admitted for treatment. HOSPITAL COURSE: The patient was admitted and treated with IV levofloxacin, gentle IV hydration, oxygen supplementation and nebulized bronchodilators. The patient tolerated this management well and had gradual improvement to where he was able to ambulate without significant oxygen desaturation on room air. He also tolerated oral intake and was therefore felt to be stable for discharge home. Chest x-ray did show asbestosis, which is old and present on old films as well. Additionally, clinically the patient shows signs of COPD, and therefore was treated with ipratropium, with good results. DISCHARGE INSTRUCTIONS/MEDICATIONS: Disposition: Home. Discharge medications: Ipratropium. Albuterol 2 puffs p.o. q.i.d. Levofloxacin 500 mg p.o. daily x7 days. Aspirin 81 mg p.o. daily. Calcium with vitamin D 1 p.o. daily. Carvedilol 3.125 mg p.o. b.i.d. Fish oil 1 p.o. daily. Hydrochlorothiazide/triamterene 25/37.5, one p.o. daily. Atorvastatin 10 mg p.o. daily. Lisinopril 40 mg p.o. daily. Multivitamin 1 p.o. daily. Vitamin B12, 1000 mcg daily. Special instructions: Increase activity gradually at home. Use inspiratory spirometer regularly. Follow up in my office in 2 weeks.
== END 2016-08-05 10:10 | disposition home or self-care (01) | DRG 190 ==
LOC: ED SRH 14:30 → TRANS SRH 16:25 → ACUTE2 SRH 19:19 → ACUTE3 SRH 19:19
PROVIDERS: ADMIT Emergency Medicine
DX: J44.0 Chronic obstructive pulmonary disease with (acute) lower respiratory infection (principal); J18.9 Pneumonia, unspecified organism; E11.9 Type 2 diabetes mellitus without complications; J61 Pneumoconiosis due to asbestos and other mineral fibers; C67.9 Malignant neoplasm of bladder, unspecified; I10 Essential (primary) hypertension; E78.5 Hyperlipidemia, unspecified
CPT/HCPCS: 85241; 90004; 90065; 90074; 90098; 90100; 90616; 91286; 91320; 92235; 92530; 92610; 92720; 93004; 94001; 94060; 95059

== ENCOUNTER 2016-08-20 14:46 | Emergency (ER) | payer OTHER ==
[~2016-08-20 14:46] MED LIST: ASPIRIN 81 LOW81 MG PO; CALCIUM + D PO; CARVEDILOL3.125 MG PO; COMBIVENT RESPIMAT PO; FISH OIL500 MG PO; HCTZ/TRIAMTEREN1 TA1 PO; LEVOFLOXACIN500 MG PO; LIPITOR10 MG PO; LISINOPRIL10 MG PO; VITAMIN B12 PO; VITAMIN D-11000 UNIT PO; VITAMINS & MINERALS PO
--- NOTE | 2016-08-20 16:16 | DIAGNOSTIC IMAGING REPORT ---
PROCEDURE: XR CHEST 2 VIEW INDICATION: SHORTNESS OF BREATH TECHNIQUE: PA and lateral views. COMPARISON: Chest 08/04/2016 and 08/01/2016 and 12/26/2014 FINDINGS: No change in right upper lobe and right lower lobe infiltrates. There is an increasing right pleural effusion. Left lung is clear and unchanged with the previously described a pleural plaque. Heart size is normal. IMPRESSION: 1. Increase in right pleural effusion.
--- NOTE | 2016-08-20 16:22 | DIAGNOSTIC IMAGING REPORT ---
PROCEDURE: XR RIBS UNILATERAL - RIGHT INDICATION: TRAUMA/INJURY TECHNIQUE: Three views of the right ribs COMPARISON: Chest 08/20/2016 and 08/04/2016 FINDINGS: No rib fractures. Right pleural effusion. IMPRESSION: 1. No rib fractures.
--- NOTE | 2016-08-20 17:07 | ED NURSING NOTES ---
Clinical Report - Nurses [facility] [address] [place] [address] 08/20/2016 14:46 [id number] Triage time 14:50. Acuity: LEVEL 4. Chief Complaint: FALL. 14:50 08/20/16. 14:50 08/20/16. Alert. No acute distress. ( GLF onto chair, 1 week ago. Pt states he was admitted and recently discharged for PNA.). SEPSIS SCREEN: Sepsis Screen. Negative (no infection suspected/documented). JEANNETTE COMA SCORE: Jeannette Coma Scale: 15- eyes open spontaneously (4); best verbal response- oriented x 4 (5); best motor response- obeys commands (6). --14:55 Joseph Mcleod R.N. 14:49 08/20/16. BP: 128/57. HR: 69. RR: 18. O2 saturation: 96% on room air. Temp: 97.7 F (oral). Pain level now: 810. --14:55 Joseph Mcleod R.N. Weight: 90.7 kg stated. Height/Length: 71 inches Per Patient. BMI: 27.9. --14:50 Joseph Mcleod R.N. Medications ASA Oral 81 mg q day. Calcium + D Oral. Carvedilol Oral (Tablet 3.125 mg) 1 tablet, BID. Fish Oil Oral. HCTZ 25 mg q day. Lipitor Oral 10 mg, daily. Lisinopril Oral 40 mg, daily. Vitamin D Oral. Vitamins/Minerals Oral. --14:52 Joseph Mcleod R.N. Aleve Oral. --14:53 Joseph Mcleod R.N. Combivent Respimat Inhalation (Aerosol Solution 20-100 mcg/act) 2 puffs, 4 times a day. --14:58 Joseph Mcleod R.N. Medication/allergy information source: the patient. --14:55 Joseph Mcleod R.N. Allergies Penicillins. --14:52 Joseph Mcleod R.N. Wellbutrin. --14:52 Joseph Mcleod R.N. History Arrived by EMS, and unaccompanied. Primary physician (JOAN MCKINNEY). 14:50 08/20/16. Occurred at home. ( 1 week ago). Treatment RESIDENT PHYSICIAN: None. PAST MEDICAL HX: Tetanus status: up-to-date. Immunizations: up-to-date. SOCIAL HX: Former smoker. No alcohol use or drug use. No infectious disease exposure. ABUSE ASSESSMENT: No report of abuse. FALL RISK ASSESSMENT: Fall risk assessment completed. No fall risk identified. NUTRITIONAL RISK ASSESSMENT: The nutritional risk assessment revealed no deficiencies. FUNCTIONAL ASSESSMENT: Functional assessment: no impairments noted. LEARNING NEEDS ASSESSMENT: The learning needs assessment revealed no barriers. SKIN INTEGRITY ASSESSMENT: Skin integrity risk assessment completed. No skin integrity risk identified. --14:55 Joseph Mcleod R.N. Location of injuries: right axilla. --14:55 Joseph Mcleod R.N. Treatment RESIDENT PHYSICIAN: See EMS report. BP: 120 / 86. HR: 70. RR: 16 regular. O2 saturation: 96 (nasal cannula) (at 4 liters/minute). End tidal CO2: 35 mm Hg. ( 92% on RA). --15:01 Joseph Mcleod R.N. PROBLEMS: Cataracts. --14:53 Joseph Mcleod R.N. Pneumonia. Hernia. Carpel tunnel rt . Sciatica. Bladder cancer. Hypercholesterolemia. Hypertension. Diabetes Mellitus. Basal cell carcinoma of face. Basal cell carcinoma of ear. --14:53 Joseph Mcleod R.N. Chest Wall Pain [RuleOut]. --14:53 Joseph Mcleod R.N. Fall. --14:56 Joseph Mcleod R.N. The following entry was modified by Joseph Mcleod R.N., 14:53 <<NIDIAKEN ENTRY-- Rnee, rt. --14:52 Joseph Mcleod R.N. --END STRIKE>>. ADDITIONAL SURGERIES: Abdominal Aortic Aneurysm Repair. Bladder tumor removal. Colonoscopy. Hernia Repair. Knee Surgery. Right Knee Surgery. --14:54 Joseph Mcleod R.N. Assessment 14:50 08/20/16. --14:55 Joseph Mcleod R.N. Interventions 14:50 08/20/16. 14:50 08/20/16. ID and allergy band on patient. To treatment room. --14:55 Joseph Mcleod R.N. PHYSICAL ASSESSMENT 14:55 08/20/16. GENERAL / NEURO / PSYCH: Alert. Oriented X 4. Appears in pain. RESPIRATORY: Right upper and mid- costochondral tenderness. CVS: Capillary refill less than 2 seconds. SKIN: Skin is warm and dry. --14:55 Joseph Mcleod R.N. NURSING PROGRESS NOTES 14:56 08/20/16. Patient gowned. Reassurance given. Two patient identifiers checked. Call light placed in reach. Side rails up x 2. Bed placed in lowest position. Brakes of bed on. Brakes of chair on. --14:56 Joseph Mcleod R.N. 14:56 08/20/16. Patient ready for evaluation- chart flagged and notification provided. --14:56 Joseph Mcleod R.N. 15:50 08/20/16. ( x- ray completed). --15:50 Joseph Mcleod R.N. 15:50 08/20/16. Patient ID band checked for patient name and birthdate: patient confirmed. Clean catch urine collected with return of zay-colored urine; sample sent to lab for urinalysis and culture. Specimen labeled in the presence of the patient. --15:50 Joseph Mcleod R.N. 15:52 08/20/16. --15:52 Joseph Mcleod R.N. 15:51 08/20/16. BP: 118/72. HR: 82. RR: 18. O2 saturation: 98% on nasal cannula. O2 started at 2 liters/minute. Additional comments: started on 2LNC due to SOB with exertion. Pt was SOB after chest x-ray, sats increased to 98% after oxygen placed. --15:52 Joseph Mcleod R.N. DISPOSITION / DISCHARGE 17:16 08/20/16. The goals identified in the patient's plan of care were met. No learning barriers present. Discharge instructions provided and reviewed with the patient and family. Reviewed warnings. Reviewed medication(s). Treatments reviewed. Patient and family verbalized understanding. Written instructions provided in Serbian. The patient was discharged by the physician. He was discharged home and accompanied by family. He left the Emergency Department in a wheelchair and via private vehicle. Family member driving. FALL RISK ASSESSMENT: Fall risk assessment completed. No fall risk identified. --17:16 Joseph Mcleod R.N. 17:15 08/20/16. BP: 112/72. HR: 72. RR: 14. O2 saturation: 97% on room air. Temp: 98.2 F (oral). --17:16 Joseph Mcleod R.N. 17:43 08/20/16. ( Pt educated about how to use IS from prior hospital visit, pt aware to call 911 with increasing SOB). --17:43 Joseph Mcleod R.N. 17:43 08/20/16. --17:43 Joseph Mcleod R.N. 17:43 08/20/16. O2 saturation: 93% on room air. --17:43 Joseph Mcleod R.N. 17:43 08/20/16. Departure time: 17:43. --17:43 Joseph Mcleod R.N. Locked/Released at 08/20/2016 17:52 by Joseph Mcleod R.N.
--- NOTE | 2016-08-20 17:07 | ED CLINICAL REPORT ---
Clinical Report - Physicians/Mid Levels [facility] [address] [place] [address] 08/20/2016 14:46 [id number] Time Seen: 15:03. Arrived- By private vehicle. Historian- patient and family. HISTORY OF PRESENT ILLNESS Chief Complaint: FALL. Location of injuries- chest. The injury occurred about 1 week ago. Occurred at home. Fell. The patient complains of severe pain. No blow to the head, neck pain or loss of consciousness. REVIEW OF SYSTEMS No calf pain, cough, pedal edema, palpitations or abdominal pain. No constipation, diarrhea, nausea or vomiting. He has had moderate difficulty breathing (he says that it is painful to take deep breaths). He has had urinary problems (prior UTIs have led to increased falls). All systems otherwise negative, except as recorded above. PAST HISTORY PCP - JOAN MULLINS SOCIAL HISTORY Former smoker. No alcohol use or drug use. He lives with a family member. Has good social support. FAMILY HISTORY No significant family medical history. ADDITIONAL NOTES The nursing notes have been reviewed. PHYSICAL EXAM Vital Signs: 08/20/2016 14:49 BP: 128/57. HR: 69. RR: 18. O2 saturation: 96%. Temp: 97.7 F. Pain level now: 8/10. Have been reviewed. Appearance: Alert. Head: Head non-tender. No swelling of head. Eyes: Pupils equal, round and reactive to light. EOM intact. ENT: No dental injury. Pharynx normal. Neck: Painless ROM. Non-tender. No vertebral tenderness. CVS: Heart sounds normal. Pulses normal. Respiratory: Chest wall injury: severe tenderness located in the lower and right chest. No ecchymosis. No splinting present. No paradoxical movement. Breath sounds normal. Abdomen: No visible injury. Soft and nontender. Bowel sounds normal. No organomegaly. No mass. Back: No tenderness. No vertebral point tenderness. (kyphotic). Skin: Skin intact. Skin warm and dry. Extremities: Normal inspection. Pelvis stable. No lower extremity edema. Neuro: No motor deficit. No sensory deficit. LABS, X-RAYS, AND EKG X-Rays: Rib series. Chest X-ray: Small right pleural effusion present. The X-rays were interpreted by the radiologist and contemporaneously by me. Sternum / Ribs X-rays: No fracture present. The X-rays were independently viewed by me. Laboratory Tests: UA-Culture if indicated: (CLAUDIA: 08/20/2016 15:48) ( MsgRcvd 08/20/2016 16:11) Final results Test Result Flag Units (Reference) URINE COLOR YELLOW URINE APPEARANCE CLEAR URINE GLUCOSE NEGATIVE (NEGATIVE) URINE BILIRUBIN NEGATIVE (NEGATIVE) URINE KETONE NEGATIVE (NEGATIVE) URINE SPECIFIC GRAVITY 1.020 (1.010-1.030) URINE PH 6.0 (5.0-8.0) URINE PROTEIN NEGATIVE (NEGATIVE) URINE UROBILINOGEN 0.2 EU/dL (0.2-1.0) URINE NITRITE NEGATIVE (NEGATIVE) URINE BLOOD NEGATIVE (NEGATIVE) URINE LEUK ESTERASE NEGATIVE (NEGATIVE) URINE RBC 0-1 rbc/hpf (0-1) URINE WBC 0-1 wbc/hpf (0-1) URINE EPITHELIAL CELLS 0-1 EPI/hpf (0-5) URINE BACTERIA NONE SEEN (NONE SEEN) URINE COMMENT CULT NOT INDICATED 3-5 Hyaline Casts/l.p.f.URINE CULTURES ARE SET-UP BASED ON THE FOLLOWING CRITERIA:POSITIVE NITRITEPOSITIVE LEUKOCYTE ESTERASEGREATER THAN 10 WHITE BLOOD CELLSMODERATE (2+) OR GREATER BACTERIA . PROGRESS AND PROCEDURES Course of Care: he requests a refill of his Combivent. Patient is stable. Patient/family counseled. Old medical records reviewed. Disposition: Discharged. Condition: stable. CLINICAL IMPRESSION Medium-sized right pleural effusion associated with pleurisy. Pleurisy with effusion. Contusion to the right chest. INSTRUCTIONS No driving or operating machinery while taking medication. Warnings: GENERAL WARNINGS: Return or contact your physician immediately if your condition worsens or changes unexpectedly, if not improving as expected, or if other problems arise. Your Current Medications: CONTINUE TAKING THE FOLLOWING MEDICATIONS: Aleve Oral. ASA Oral : 81 mg q day. Calcium + D Oral. Carvedilol Oral : Tablet 3.125 mg, 1 tablet BID. Combivent Respimat Inhalation : Aerosol Solution 20-100 mcg/act, 2 puffs 4 times a day. Fish Oil Oral. HCTZ 25 mg q day*. Lipitor Oral : 10 mg daily. Lisinopril Oral : 40 mg daily. Vitamin D Oral. Vitamins/Minerals Oral. Prescription Medications: Tylenol with Codeine #3 (30 mg / 300 mg): take 1 tablet every 4 hours as needed for pain. Dispense fifteen (15). No refills. Substitution is permissible. Combivent oral inhaler: inhale 2 puffs via spacer every 6 hours. Dispense one (1) unit. No refill. Substitution is permissible. Understanding of the discharge instructions verbalized by patient and family. Follow-up with: Joan Mullins MD, Family [facility], , [place] [phone] Follow up in two days. Call for the next available appointment. (Electronically signed by Rojas Baptiste MD 08/30/2016 9:38)
--- NOTE | 2016-08-20 17:07 | ED NURSING NOTES ---
Clinical Report - Nurses [facility] [address] [place] [address] 08/20/2016 14:46 [id number] Triage time 14:50. Acuity: LEVEL 4. Chief Complaint: FALL. 14:50 08/20/16. 14:50 08/20/16. Alert. No acute distress. ( GLF onto chair, 1 week ago. Pt states he was admitted and recently discharged for PNA.). SEPSIS SCREEN: Sepsis Screen. Negative (no infection suspected/documented). JEANNETTE COMA SCORE: Jeannette Coma Scale: 15- eyes open spontaneously (4); best verbal response- oriented x 4 (5); best motor response- obeys commands (6). --14:55 Joseph Mcleod R.N. 14:49 08/20/16. BP: 128/57. HR: 69. RR: 18. O2 saturation: 96% on room air. Temp: 97.7 F (oral). Pain level now: 810. --14:55 Joseph Mcleod R.N. Weight: 90.7 kg stated. Height/Length: 71 inches Per Patient. BMI: 27.9. --14:50 Joseph Mcleod R.N. Medications ASA Oral 81 mg q day. Calcium + D Oral. Carvedilol Oral (Tablet 3.125 mg) 1 tablet, BID. Fish Oil Oral. HCTZ 25 mg q day. Lipitor Oral 10 mg, daily. Lisinopril Oral 40 mg, daily. Vitamin D Oral. Vitamins/Minerals Oral. --14:52 Joseph Mcleod R.N. Aleve Oral. --14:53 Joseph Mcleod R.N. Combivent Respimat Inhalation (Aerosol Solution 20-100 mcg/act) 2 puffs, 4 times a day. --14:58 Joseph Mcleod R.N. Medication/allergy information source: the patient. --14:55 Joseph Mcleod R.N. Allergies Penicillins. --14:52 Joseph Mcleod R.N. Wellbutrin. --14:52 Joseph Mcleod R.N. History Arrived by EMS, and unaccompanied. Primary physician (JOAN MCKINNEY). 14:50 08/20/16. Occurred at home. ( 1 week ago). Treatment PORTFOLIO ADMINISTRATOR: None. PAST MEDICAL HX: Tetanus status: up-to-date. Immunizations: up-to-date. SOCIAL HX: Former smoker. No alcohol use or drug use. No infectious disease exposure. ABUSE ASSESSMENT: No report of abuse. FALL RISK ASSESSMENT: Fall risk assessment completed. No fall risk identified. NUTRITIONAL RISK ASSESSMENT: The nutritional risk assessment revealed no deficiencies. FUNCTIONAL ASSESSMENT: Functional assessment: no impairments noted. LEARNING NEEDS ASSESSMENT: The learning needs assessment revealed no barriers. SKIN INTEGRITY ASSESSMENT: Skin integrity risk assessment completed. No skin integrity risk identified. --14:55 Joseph Mcleod R.N. Location of injuries: right axilla. --14:55 Joseph Mcleod R.N. Treatment PORTFOLIO ADMINISTRATOR: See EMS report. BP: 120 / 86. HR: 70. RR: 16 regular. O2 saturation: 96 (nasal cannula) (at 4 liters/minute). End tidal CO2: 35 mm Hg. ( 92% on RA). --15:01 Joseph Mcleod R.N. PROBLEMS: Cataracts. --14:53 Joseph Mcleod R.N. Pneumonia. Hernia. Carpel tunnel rt . Sciatica. Bladder cancer. Hypercholesterolemia. Hypertension. Diabetes Mellitus. Basal cell carcinoma of face. Basal cell carcinoma of ear. --14:53 Joseph Mcleod R.N. Chest Wall Pain [RuleOut]. --14:53 Joseph Mcleod R.N. Fall. --14:56 Joseph Mcleod R.N. The following entry was modified by Joseph Mcleod R.N., 14:53 <<NIDIAKEN ENTRY-- Rnee, rt. --14:52 Joseph Mcleod R.N. --END STRIKE>>. ADDITIONAL SURGERIES: Abdominal Aortic Aneurysm Repair. Bladder tumor removal. Colonoscopy. Hernia Repair. Knee Surgery. Right Knee Surgery. --14:54 Joseph Mcleod R.N. Assessment 14:50 08/20/16. --14:55 Joseph Mcleod R.N. Interventions 14:50 08/20/16. 14:50 08/20/16. ID and allergy band on patient. To treatment room. --14:55 Joseph Mcleod R.N. PHYSICAL ASSESSMENT 14:55 08/20/16. GENERAL / NEURO / PSYCH: Alert. Oriented X 4. Appears in pain. RESPIRATORY: Right upper and mid- costochondral tenderness. CVS: Capillary refill less than 2 seconds. SKIN: Skin is warm and dry. --14:55 Joseph Mcleod R.N. NURSING PROGRESS NOTES 14:56 08/20/16. Patient gowned. Reassurance given. Two patient identifiers checked. Call light placed in reach. Side rails up x 2. Bed placed in lowest position. Brakes of bed on. Brakes of chair on. --14:56 Joseph Mcleod R.N. 14:56 08/20/16. Patient ready for evaluation- chart flagged and notification provided. --14:56 Joseph Mcleod R.N. 15:50 08/20/16. ( x- ray completed). --15:50 Joseph Mcleod R.N. 15:50 08/20/16. Patient ID band checked for patient name and birthdate: patient confirmed. Clean catch urine collected with return of zay-colored urine; sample sent to lab for urinalysis and culture. Specimen labeled in the presence of the patient. --15:50 Joseph Mcleod R.N. 15:52 08/20/16. --15:52 Joseph Mcleod R.N. 15:51 08/20/16. BP: 118/72. HR: 82. RR: 18. O2 saturation: 98% on nasal cannula. O2 started at 2 liters/minute. Additional comments: started on 2LNC due to SOB with exertion. Pt was SOB after chest x-ray, sats increased to 98% after oxygen placed. --15:52 Joseph Mcleod R.N. DISPOSITION / DISCHARGE 17:16 08/20/16. The goals identified in the patient's plan of care were met. No learning barriers present. Discharge instructions provided and reviewed with the patient and family. Reviewed warnings. Reviewed medication(s). Treatments reviewed. Patient and family verbalized understanding. Written instructions provided in Danish. The patient was discharged by the physician. He was discharged home and accompanied by family. He left the Emergency Department in a wheelchair and via private vehicle. Family member driving. FALL RISK ASSESSMENT: Fall risk assessment completed. No fall risk identified. --17:16 Joseph Mcleod R.N. 17:15 08/20/16. BP: 112/72. HR: 72. RR: 14. O2 saturation: 97% on room air. Temp: 98.2 F (oral). --17:16 Joseph Mcleod R.N. 17:43 08/20/16. ( Pt educated about how to use IS from prior hospital visit, pt aware to call 911 with increasing SOB). --17:43 Joseph Mcleod R.N. 17:43 08/20/16. --17:43 Joseph Mcleod R.N. 17:43 08/20/16. O2 saturation: 93% on room air. --17:43 Joseph Mcleod R.N. 17:43 08/20/16. Departure time: 17:43. --17:43 Joseph Mcleod R.N. Locked/Released at 08/20/2016 17:52 by Joseph Mcleod R.N.
--- NOTE | 2016-08-20 17:07 | ED CLINICAL REPORT ---
Clinical Report - Physicians/Mid Levels [facility] [address] [place] [address] 08/20/2016 14:46 [id number] Time Seen: 15:03. Arrived- By private vehicle. Historian- patient and family. HISTORY OF PRESENT ILLNESS Chief Complaint: FALL. Location of injuries- chest. The injury occurred about 1 week ago. Occurred at home. Fell. The patient complains of severe pain. No blow to the head, neck pain or loss of consciousness. REVIEW OF SYSTEMS No calf pain, cough, pedal edema, palpitations or abdominal pain. No constipation, diarrhea, nausea or vomiting. He has had moderate difficulty breathing (he says that it is painful to take deep breaths). He has had urinary problems (prior UTIs have led to increased falls). All systems otherwise negative, except as recorded above. PAST HISTORY PCP - JOAN MULLINS SOCIAL HISTORY Former smoker. No alcohol use or drug use. He lives with a family member. Has good social support. FAMILY HISTORY No significant family medical history. ADDITIONAL NOTES The nursing notes have been reviewed. PHYSICAL EXAM Vital Signs: 08/20/2016 14:49 BP: 128/57. HR: 69. RR: 18. O2 saturation: 96%. Temp: 97.7 F. Pain level now: 8/10. Have been reviewed. Appearance: Alert. Head: Head non-tender. No swelling of head. Eyes: Pupils equal, round and reactive to light. EOM intact. ENT: No dental injury. Pharynx normal. Neck: Painless ROM. Non-tender. No vertebral tenderness. CVS: Heart sounds normal. Pulses normal. Respiratory: Chest wall injury: severe tenderness located in the lower and right chest. No ecchymosis. No splinting present. No paradoxical movement. Breath sounds normal. Abdomen: No visible injury. Soft and nontender. Bowel sounds normal. No organomegaly. No mass. Back: No tenderness. No vertebral point tenderness. (kyphotic). Skin: Skin intact. Skin warm and dry. Extremities: Normal inspection. Pelvis stable. No lower extremity edema. Neuro: No motor deficit. No sensory deficit. LABS, X-RAYS, AND EKG X-Rays: Rib series. Chest X-ray: Small right pleural effusion present. The X-rays were interpreted by the radiologist and contemporaneously by me. Sternum / Ribs X-rays: No fracture present. The X-rays were independently viewed by me. Laboratory Tests: UA-Culture if indicated: (CLAUDIA: 08/20/2016 15:48) ( MsgRcvd 08/20/2016 16:11) Final results Test Result Flag Units (Reference) URINE COLOR YELLOW URINE APPEARANCE CLEAR URINE GLUCOSE NEGATIVE (NEGATIVE) URINE BILIRUBIN NEGATIVE (NEGATIVE) URINE KETONE NEGATIVE (NEGATIVE) URINE SPECIFIC GRAVITY 1.020 (1.010-1.030) URINE PH 6.0 (5.0-8.0) URINE PROTEIN NEGATIVE (NEGATIVE) URINE UROBILINOGEN 0.2 EU/dL (0.2-1.0) URINE NITRITE NEGATIVE (NEGATIVE) URINE BLOOD NEGATIVE (NEGATIVE) URINE LEUK ESTERASE NEGATIVE (NEGATIVE) URINE RBC 0-1 rbc/hpf (0-1) URINE WBC 0-1 wbc/hpf (0-1) URINE EPITHELIAL CELLS 0-1 EPI/hpf (0-5) URINE BACTERIA NONE SEEN (NONE SEEN) URINE COMMENT CULT NOT INDICATED 3-5 Hyaline Casts/l.p.f.URINE CULTURES ARE SET-UP BASED ON THE FOLLOWING CRITERIA:POSITIVE NITRITEPOSITIVE LEUKOCYTE ESTERASEGREATER THAN 10 WHITE BLOOD CELLSMODERATE (2+) OR GREATER BACTERIA . PROGRESS AND PROCEDURES Course of Care: he requests a refill of his Combivent. Patient is stable. Patient/family counseled. Old medical records reviewed. Disposition: Discharged. Condition: stable. CLINICAL IMPRESSION Medium-sized right pleural effusion associated with pleurisy. Pleurisy with effusion. Contusion to the right chest. INSTRUCTIONS No driving or operating machinery while taking medication. Warnings: GENERAL WARNINGS: Return or contact your physician immediately if your condition worsens or changes unexpectedly, if not improving as expected, or if other problems arise. Your Current Medications: CONTINUE TAKING THE FOLLOWING MEDICATIONS: Aleve Oral. ASA Oral : 81 mg q day. Calcium + D Oral. Carvedilol Oral : Tablet 3.125 mg, 1 tablet BID. Combivent Respimat Inhalation : Aerosol Solution 20-100 mcg/act, 2 puffs 4 times a day. Fish Oil Oral. HCTZ 25 mg q day*. Lipitor Oral : 10 mg daily. Lisinopril Oral : 40 mg daily. Vitamin D Oral. Vitamins/Minerals Oral. Prescription Medications: Tylenol with Codeine #3 (30 mg / 300 mg): take 1 tablet every 4 hours as needed for pain. Dispense fifteen (15). No refills. Substitution is permissible. Combivent oral inhaler: inhale 2 puffs via spacer every 6 hours. Dispense one (1) unit. No refill. Substitution is permissible. Understanding of the discharge instructions verbalized by patient and family. Follow-up with: Joan Mullins MD, Family [facility], , [place] [phone] Follow up in two days. Call for the next available appointment. (Electronically signed by Rojas Baptiste MD 08/30/2016 9:38)
--- NOTE | 2016-08-20 17:07 | ED ORDER SUMMARY ---
..... Patient: SUHAIL BILLS OrderSheet [facility] VisitID: [id number] [address] [place] [address] 86y, M Registration Date/Time: 08/20/2016 ORDER SHEET Weight: 90.7 kg (stated) Allergies: Penicillins, Wellbutrin GENERAL ORDERS: Chest 2V Urgent (14:59 08/20/2016 JBoardley R.N. per protocol) (Ack 15:00 LNations ER Tech1) (15:13 Rajwinder R.N.) Ribs Unilat Right Urgent (15:05 08/20/2016 Escobar MAYBERRY) (Ack 15:19 LNations ER Tech1) (15:21 JBoardley R.N.) UA-Culture if indicated Urgent (15:50 08/20/2016 JBoardley R.N. per protocol) (15:55 JBoardley R.N.) MEDICATION ORDERS: IV FLUIDS: ORDER SHEET NOTES: [Electronically signed by Joseph Mcleod R.N. (17:52 08/20/2016)] [Electronically signed by Rojas Baptiste MD (09:38 08/30/2016)] [Electronically locked/signed by Joseph Mcleod R.N. (17:52 08/20/2016)]
--- NOTE | 2016-08-20 17:07 | ED ORDER SUMMARY ---
..... Patient: SUHAIL BILLS OrderSheet [facility] VisitID: [id number] [address] [place] [address] 86y, M Registration Date/Time: 08/20/2016 ORDER SHEET Weight: 90.7 kg (stated) Allergies: Penicillins, Wellbutrin GENERAL ORDERS: Chest 2V Urgent (14:59 08/20/2016 JBoardley R.N. per protocol) (Ack 15:00 LNations ER Tech1) (15:13 Rajwinder R.N.) Ribs Unilat Right Urgent (15:05 08/20/2016 Escobar MAYBERRY) (Ack 15:19 LNations ER Tech1) (15:21 JBoardley R.N.) UA-Culture if indicated Urgent (15:50 08/20/2016 JBoardley R.N. per protocol) (15:55 JBoardley R.N.) MEDICATION ORDERS: IV FLUIDS: ORDER SHEET NOTES: [Electronically signed by Joseph Mcleod R.N. (17:52 08/20/2016)] [Electronically signed by Rojas Baptiste MD (09:38 08/30/2016)] [Electronically locked/signed by Joseph Mcleod R.N. (17:52 08/20/2016)]
--- NOTE | 2016-08-30 09:39 | ED MAR SUMMARY ---
..... Medication Administration Record [facility] [address] [place], [place] [id number] Patient: SUHAIL BILLS Visit ID: [id number] 86y, M Weight: 90.7 kg Height/Length: 71 in BMI: 27.9 ALLERGIES: Penicillins, Wellbutrin
--- NOTE | 2016-08-30 09:39 | ED MED RECONCILIATION SUMMARY ---
Patient: SUHAIL BILLS Medication Reconciliation Report [facility] VisitID: [id number] [place] [address] 86y, M Registration Date/Time: 08/20/2016 Weight: 90.7 kg Height/Length: 71 in. BMI: 27.9 ALLERGIES: Penicillins, Wellbutrin The patient's Home Medications are listed below: CONTINUE TAKING THE FOLLOWING MEDICATIONS: Aleve Oral ASA Oral 81 mg q day Calcium + D Oral Carvedilol Oral (3.125 mg) 1 tablet, BID Combivent Respimat Inhalation (20-100 mcg/act) 2 puffs, 4 times a day Fish Oil Oral HCTZ 25 mg q day Lipitor Oral 10 mg, daily Lisinopril Oral 40 mg, daily Vitamin D Oral Vitamins/Minerals Oral The source(s) of the original Home Medication information: patient The following Medications were given to the patient in the Emergency Department: None. The following Medications were prescribed to the patient: Tylenol with Codeine #3 (30 mg / 300 mg): take 1 tablet every 4 hours as needed for pain. Dispense fifteen (15). No refills. Substitution is permissible. -- Rojas Baptiste MD Combivent oral inhaler: inhale 2 puffs via spacer every 6 hours. Dispense one (1) unit. No refill. Substitution is permissible. -- Rojas Baptiste MD
--- NOTE | 2016-08-30 09:39 | ED DISCHARGE INSTRUCTIONS ---
Patient: SUHAIL BILLS General Instructions [facility] VisitID: [id number] [place] [address] 86y, M Registration Date/Time: 08/20/2016 Medium-sized right pleural effusion associated with pleurisy. Pleurisy with effusion. Contusion to the right chest. INSTRUCTIONS No driving or operating machinery while taking medication. Warnings: GENERAL WARNINGS: Return or contact your physician immediately if your condition worsens or changes unexpectedly, if not improving as expected, or if other problems arise. Your Current Medications: CONTINUE TAKING THE FOLLOWING MEDICATIONS: Aleve Oral. ASA Oral : 81 mg q day. Calcium + D Oral. Carvedilol Oral : Tablet 3.125 mg, 1 tablet BID. Combivent Respimat Inhalation : Aerosol Solution 20-100 mcg/act, 2 puffs 4 times a day. Fish Oil Oral. HCTZ 25 mg q day*. Lipitor Oral : 10 mg daily. Lisinopril Oral : 40 mg daily. Vitamin D Oral. Vitamins/Minerals Oral. Prescription Medications: Tylenol with Codeine #3 (30 mg / 300 mg): take 1 tablet every 4 hours as needed for pain. Dispense fifteen (15). No refills. Substitution is permissible. Combivent oral inhaler: inhale 2 puffs via spacer every 6 hours. Dispense one (1) unit. No refill. Substitution is permissible. Understanding of the discharge instructions verbalized by patient and family. Follow-up with: Jon Mullins MD, [facility], , [facility], [address] [place] [address] Follow up in two days. Call for the next available appointment. ADDITIONAL INFORMATION Chest Contusion Acontusion is a bruise to the skin, muscle or ribs. It may cause pain, tenderness, swelling and a purplish discoloration. Contusions take a few days to a few weeks to heal. Home Care: Rest. You should not be doing any heavy lifting or strenuous exertion, or any activity that causes pain. You may use acetaminophen (Tylenol) or ibuprofen (Motrin, Advil) to control pain, unless another pain medicine was prescribed. [ NOTE: If you have chronic liver or kidney disease or ever had a stomach ulcer or GI bleeding, talk with your doctor before using these medicines.] Follow Up with your doctor during the next week or as directed. Get Prompt Medical Attention if any of the following occur: Shortness of breath Increasing chest pain with breathing Dizziness, weakness or fainting New or worsening of abdominal pain Fever of 100.4F (38C) or higher, or as directed by your healthcare provider Pleural Effusion The pleura is a smooth double membrane that surrounds the lungs and separatesthem from the chest wall. One side of the pleura attaches to the lung, the other to the chest wall. This membrane makes it easier for the chest to inflate and deflate as you breathe without rubbing against the ribs. There is normally a small amount of lubricating fluid between the pleural membranes (pleural fluid). A pleural effusion is when an excess amount of fluid collects in the space between the two pleural membranes (pleural space). As the amount of fluid increases, it begins to press on the lung, making it harder to take a full breath. There are two types of pleural effusion: Inflammatorycaused by a lung disease that irritates the pleura, such as pneumonia or lung cancer. Non-inflammatorycaused by abnormal fluid pressures inside the lungs, such as congestive heart failure (also called CHF,where excess fluid collects inside the lung tissues due to a weakened heart muscle, then leaks into the pleural space). Pleural effusion may cause any of the following symptoms: Shortness of breath Rapid breathing Cough or hiccups Sharp chest pain that hurts more with coughing or deep breathing A small pleural effusion may cause no symptoms at all. Treatment will be directed at the cause of the pleural effusion. If you are having a lot of trouble breathing, a thoracentesis procedure may be performed to remove the fluid from the pleural space. This usually gives immediate relief, although the fluid may gradually return. Home Care: Exertion may make your symptoms worse, so rest until you are feeling better. If medicines were prescribed to treat the underlying cause of the pleural effusion, take these exactly as directed. Follow Up with your doctor or as advised by our staff. Return Promptly or contact your doctor if any of the following occur: Increasing shortness of breath Increasing chest pain Coughing up blood Weakness, dizziness, or fainting Fever over 100.4F (38.0C) Pleurisy If you have pleurisy, the lining around your lungs is inflamed. It is most often due to a viral infection or pneumonia. It usually lasts for 1014 days. It may cause sharp pain with breathing, coughing, sneezing and movement. Antibiotics are usually not prescribed for this condition unless pneumonia is also present. Home care The following will help you care for your condition at home: If symptoms are severe, rest at home for the first 23 days. Avoid being exposed to cigarette smoke (yours or that of others). You may use acetaminophen or ibuprofen to control pain, unless another pain medicine was prescribed. If you have chronic liver or kidney disease or ever had a stomach ulcer or GI bleeding, talk with your doctor before using these medicines. Follow-up care Follow up with your doctor or as advised if you do not improve over the next week. When to seek medical care Get prompt medical attention if any of the following occur: Increasing shortness of breath Increase in chest pain, or pain spreads to the neck, arm or back Fever over 100.4F (38.0C) for more than three days Coughing up lots of colored sputum (mucus) or blood Redness, pain or swelling of the leg Acetaminophen, Codeine Phosphate Oral tablet What is this medicine? ACETAMINOPHEN; CODEINE (a set a LADARIUS silas fen; KOE tong) is a pain reliever. It is used to treat mild to moderate pain. How should I use this medicine? Take this medicine by mouth with a full glass of water. Follow the directions on the prescription label. If the medicine upsets your stomach, take the medicine with food or milk. Do not take more medicine than you are told to take. Talk to your red hat open stack administrator regarding the use of this medicine in children. Special care may be needed. What side effects may I notice from receiving this medicine? Side effects that you should report to your doctor or health patient care specialist as soon as possible: allergic reactions like skin rash, itching or hives, swelling of the face, lips, or tongue breathing difficulties, wheezing confusion light headedness or fainting spells severe stomach pain yellowing of the skin or the whites of the eyes Side effects that usually do not require medical attention (report to your doctor or health patient care specialist if they continue or are bothersome): dizziness drowsiness nausea, vomiting What may interact with this medicine? alcohol antihistamines benztropine drugs for bladder problems like solifenacin, trospium, oxybutynin, tolterodine, hycosamine, and methscopolamine drugs for breathing problems like ipratropium and tiotropium drugs for certain stomach or intestine problems like propantheline, homatropine methylbromide, glycopyrrolate, atropine, belladonna, and dicyclomine medicines for depression, anxiety, or psychotic disturbances medicines for sleep muscle relaxants naltrexone narcotic medicines (opiates) for pain phenothiazines like perphenazine, thioridazine, chlorpromazine, mesoridazine, fluphenazine, prochlorperazine, promazine, trifluoperazine scopolamine tramadol trihexyphenidyl What if I miss a dose? If you miss a dose, take it as soon as you can. If it is almost time for your next dose, take only that dose. Do not take double or extra doses. Where should I keep my medicine? Keep out of the reach of children. This medicine can be abused. Keep your medicine in a safe place to protect it from theft. Do not share this medicine with anyone. Selling or giving away this medicine is dangerous and against the law. Store at room temperature between 15 and 30 degrees C (59 and 86 degrees F). Protect from light. Keep container tightly closed. Throw away any unused medicine after the expiration date. Discard unused medicine and used packaging carefully. Pets and children can be harmed if they find used or lost packages. What should I tell my health care provider before I take this medicine? They need to know if you have any of these conditions: brain tumor Crohn's disease, inflammatory bowel disease, or ulcerative colitis drink more than 3 alcohol containing drinks per day drug abuse or addiction head injury heart or circulation problems kidney disease or problems going to the bathroom liver disease lung disease, asthma, or breathing problems an unusual or allergic reaction to acetaminophen, codeine, salicylates, other opioid analgesics, other medicines, foods, dyes, or preservatives or trying to get breast-feeding What should I watch for while using this medicine? Tell your doctor or health patient care specialist if your pain does not go away, if it gets worse, or if you have new or a different type of pain. You may develop tolerance to the medication. Tolerance means that you will need a higher dose of the medication for pain relief. Tolerance is normal and is expected if you take the medicine for a long time. Do not suddenly stop taking your medicine because you may develop a severe reaction. Your body becomes used to the medicine. This does NOT mean you are addicted. Addiction is a behavior related to getting and using a drug for a non medical reason. If you have pain, you have a medical reason to take pain medicine. Your doctor will tell you how much medicine to take. If your doctor wants you to stop the medicine, the dose will be slowly lowered over time to avoid any side effects. You may get drowsy or dizzy. Do not drive, use machinery, or do anything that needs mental alertness until you know how this medicine affects you. Do not stand or sit up quickly, especially if you are an older patient. This reduces the risk of dizzy or fainting spells. Alcohol may interfere with the effect of this medicine. Avoid alcoholic drinks. There are different types of narcotic medicines (opiates) for pain. If you take more than one type at the same time, you may have more side effects. Give your health care provider a list of all medicines you use. Your doctor will tell you how much medicine to take. Do not take more medicine than directed. Call emergency for help if you have problems breathing. The medicine will cause constipation. Try to have a bowel movement at least every 2 to 3 days. If you do not have a bowel movement for 3 days, call your doctor or health patient care specialist. Do not take Tylenol (acetaminophen) or medicines that have acetaminophen with this medicine. Too much acetaminophen can be very dangerous. Many nonprescription medicines contain acetaminophen. Always read the labels carefully to avoid taking more acetaminophen. Immediately call your physician or get emergency help if you are breast-feeding and your baby is sleepier than usual, is limp, or has difficulty or breathing. Ipratropium [place], Albuterol Sulfate Inhaler What is this medicine? ALBUTEROL; IPRATROPIUM (al BYOO ter ole; i pra MELODIE pegiuliana um) has two bronchodilators. It helps open up the airways in your lungs to make it easier to breathe.This medicine is used to treat chronic obstructive pulmonary disease (COPD). How should I use this medicine? This medicine is for inhalation only. Follow the instructions on your prescription label. Do not use more often than directed. Make sure that you are using your inhaler correctly. Ask you doctor or health care provider if you have any questions. Talk to your red hat open stack administrator regarding the use of this medicine in children. Special care may be needed. What side effects may I notice from receiving this medicine? Side effects that you should report to your doctor or health patient care specialist as soon as possible: allergic reactions like skin rash, itching or hives, swelling of the face, lips, or tongue breathing problems feeling faint or lightheaded, falls fever high blood pressure irregular heartbeat or chest pain muscle cramps or weakness pain, tingling, numbness in the hands or feet vomiting Side effects that usually do not require medical attention (report to your doctor or health patient care specialist if they continue or are bothersome): blurred vision cough difficulty passing urine difficulty sleeping headache nervousness or trembling stuffy or runny nose unusual taste upset stomach What may interact with this medicine? Do not take this medicine with any of the following medications: MAOIs like Carbex, Eldepryl, Marplan, Nardil, and Parnate This medicine may also interact with the following medications: diuretics medicines for depression, anxiety, or psychotic disturbances medicines for irregular heartbeat medicines for weight loss including some herbal products methadone pimozide sertindole some medicines for blood pressure or the heart What if I miss a dose? If you miss a dose, use it as soon as you can. If it is almost time for your next dose, use only that dose. Do not use double or extra doses. Where should I keep my medicine? Keep out of the reach of children. Store at a room temperature between 15 and 30 degrees C (59 and 86 degrees F). Do not freeze. This medicine does not work as well if it is too cold. Protect from humidity. Never throw the container into a fire or incinerator. Keep track of the number of sprays used and discard after 200 sprays. Throw away any unused medicine after the expiration date. What should I tell my health care provider before I take this medicine? They need to know if you have any of the following conditions: heart disease high blood pressure irregular heartbeat an unusual or allergic reaction to albuterol, ipratropium, atropine, soya protein, soybeans or peanuts, other medicines, foods, dyes, or preservatives or trying to get breast-feeding What should I watch for while using this medicine? Tell your doctor or health patient care specialist if your symptoms do not improve. If your breathing gets worse while you are using this medicine, call your doctor right away. Do not stop using your medicine unless your doctor tells you to. Your mouth may get dry. Chewing sugarless gum or sucking hard candy, and drinking plenty of water may help. Contact your doctor if the problem does not go away or is severe. You may get dizzy or have blurred vision. Do not drive, use machinery, or do anything that needs mental alertness until you know how this medicine affects you. Do not stand or sit up quickly, especially if you are an older patient. This reduces the risk of dizzy or fainting spells. You have been given the following additional information: Chest Wall Contusion Pleural Effusion Pleurisy Acetaminophen, Codeine Phosphate Oral tablet Ipratropium [place], Albuterol Sulfate Inhaler No driving or operating machinery while taking medication. (Electronically signed by Rojas Baptiste MD 08/30/2016 9:38)
--- NOTE | 2016-08-30 09:39 | ED MED RECONCILIATION SUMMARY ---
Patient: SUHAIL BILLS Medication Reconciliation Report [facility] VisitID: [id number] [place] [address] 86y, M Registration Date/Time: 08/20/2016 Weight: 90.7 kg Height/Length: 71 in. BMI: 27.9 ALLERGIES: Penicillins, Wellbutrin The patient's Home Medications are listed below: CONTINUE TAKING THE FOLLOWING MEDICATIONS: Aleve Oral ASA Oral 81 mg q day Calcium + D Oral Carvedilol Oral (3.125 mg) 1 tablet, BID Combivent Respimat Inhalation (20-100 mcg/act) 2 puffs, 4 times a day Fish Oil Oral HCTZ 25 mg q day Lipitor Oral 10 mg, daily Lisinopril Oral 40 mg, daily Vitamin D Oral Vitamins/Minerals Oral The source(s) of the original Home Medication information: patient The following Medications were given to the patient in the Emergency Department: None. The following Medications were prescribed to the patient: Tylenol with Codeine #3 (30 mg / 300 mg): take 1 tablet every 4 hours as needed for pain. Dispense fifteen (15). No refills. Substitution is permissible. -- Rojas Baptiste MD Combivent oral inhaler: inhale 2 puffs via spacer every 6 hours. Dispense one (1) unit. No refill. Substitution is permissible. -- Rojas Baptiste MD
--- NOTE | 2016-08-30 09:39 | ED MAR SUMMARY ---
..... Medication Administration Record [facility] [address] [place], [place] [id number] Patient: SUHAIL BILLS Visit ID: [id number] 86y, M Weight: 90.7 kg Height/Length: 71 in BMI: 27.9 ALLERGIES: Penicillins, Wellbutrin
== END 2016-08-20 17:43 | disposition home or self-care (01) ==
LOC: ED SRH 14:46
DX: J90 Pleural effusion, not elsewhere classified (principal); S20.211A Contusion of right front wall of thorax, initial encounter; W18.30XA Fall on same level, unspecified, initial encounter; Y92.009 Unspecified place in unspecified non-institutional (private) residence as the place of occurrence of the external cause; Y93.9 Activity, unspecified; Y99.9 Unspecified external cause status; Z79.82 Long term (current) use of aspirin; Z79.1 Long term (current) use of non-steroidal anti-inflammatories (NSAID); Z79.899 Other long term (current) drug therapy

== ENCOUNTER 2016-08-22 12:05 | Observation (INO) | payer OTHER ==
[~2016-08-22] VITALS: Ht 180.3 cm; Wt 87.7 kg
[2016-08-22 12:27] VITALS: BP 96/53
--- NOTE | 2016-08-22 13:55 | DIAGNOSTIC IMAGING REPORT ---
PROCEDURE: XR CHEST 1 VIEW INDICATION: Effusion, follow-up TECHNIQUE: Portable AP view 12:50 p.m. COMPARISON: Chest x-ray 08/20/2016 and 08/01/2016 FINDINGS: Progression of mild right pleural effusion obscuring the previously noted right upper lobe round opacity which as of 08/20/2016 was unchanged from 08/01/2016, raising the possibility of a mass. Left pleural calcified plaques. Heart size, mediastinum and pulmonary vessels are normal . No suspicious osseous lesions. IMPRESSION: 1. Progression of mild right pleural effusion 2. Underlying right upper lobe opacity is unchanged from 08/01/2016. Recommend CT chest with contrast 3. Calcified left pleural plaques consistent with asbestosis 4. Results discussed
[2016-08-22 14:26] VITALS: BP 102/44
--- NOTE | 2016-08-22 16:03 | DIAGNOSTIC IMAGING REPORT ---
PROCEDURE: CT THORAX WITH CONTRAST INDICATION: Chest lesion, follow TECHNIQUE: 100 ml of Isovue 300 was injected intravenously and axial images were obtained of the chest with coronal and sagittal reformations. COMPARISON: Chest x-ray 08/22/2016 and a 08/01/2016 marbella FINDINGS: There is an 8.7 x 3.8 cm inhomogeneous soft tissue opacity in the right upper lobe posteriorly and superior segment right lower lobe associated with enlarged inhomogeneous right paratracheal and pretracheal lymph nodes (2.2 cm short axis). Prominent superior mediastinum, AP window and right pericardiac lymph nodes are also present. There is a moderate right pleural effusion. Mild right lower lobe atelectasis. Calcified bilateral pleural and right diaphragmatic plaques . Moderate atherosclerosis of the aorta. Extensive coronary atherosclerosis. Normal heart size. Pericardial thickening versus small pericardial effusion. 4 cm fat filled midline umbilical hernia. Partially visualized 3.1 cm infrarenal abdominal aortic aneurysm. Severe degenerative changes of the spine. IMPRESSION: 1. Inhomogeneous right upper lobe/superior segment left lower lobe soft tissue opacity with enlarged inhomogeneous lymph nodes and moderate effusion highly suggestive of neoplasm. Recommend ultrasound guided thoracentesis 2. Bilateral pleural and right diaphragmatic calcified plaques consistent with asbestosis 3. Mild right lower lobe compressive atelectasis 4. Pericardial thickening versus small pericardial effusion, possibly neoplastic 5. Partially visualized 3.1 cm infrarenal abdominal aortic aneurysm 6. Results discussed with Dr. Mullins
--- NOTE | 2016-08-22 17:36 | DIAGNOSTIC IMAGING REPORT ---
PROCEDURE: US THORACENTESIS WO TUBE-RIGHT INDICATION: Right pleural effusion. Infection versus malignancy. COMPARISON: Comparison is made to CT thorax earlier today (is 08/22/2016). TECHNIQUE: Informed consent was obtained and the patient was advised of the usual risks and complications including infection, bleeding, allergy and pneumothorax. Upright position. Following sterile preparation and 1% lidocaine local anesthetic, ultrasound guidance was utilized to place a 16-gauge angiocatheter in the right posterolateral thorax. 1550 ml of dark zay fluid was aspirated sent for laboratory studies (Gram stain culture, cell count differential, AFB stain culture, fungal stain culture, protein, glucose, LDH, cytology). The patient tolerated the procedure well and was transferred back to the floor in satisfactory condition. IMPRESSION: 1. Successful ultrasound-guided diagnostic/therapeutic right thoracentesis (1550 ml of dark zay fluid).
[2016-08-22 18:27] VITALS: BP 97/45
[2016-08-22 22:28] VITALS: BP 109/55
[2016-08-23 02:06] VITALS: BP 100/42
[2016-08-23 06:35] VITALS: BP 96/73
--- NOTE | 2016-08-23 07:25 | Progress Note ---
Subjective General 86YO MALE WITH HX BLADDER CANCER AND ONGOING BCG TREATMENT, RECENTLY DISCHARGED after pneumonia treatment, now admitted with increasing dyspnea and weakness. CXR shows increasing pleural effusion on right and right upper lobe mass and diaphragmatic plaque suspicious for asbestosis. CT confirms mass and shows suspicious appearing nodes. Ultrasound guided thoracentesis x 1550 cc of zay dark fluid done by radiology. Labs and cytology pending. Pt reports feeling a bit improved. Still dyspneic with getting up to bathroom. Pt denies hx significant asbestos exposure. Patient requests no code status. Physical Exam Vital Signs / I&Os Vital Signs Date Time Temp Pulse Resp B/P Pulse O2 O2 Flow FiO2 Ox Delivery Rate 08/23 0635 98.2 71 19 96/73 95 Nasal 2.0 Cannula 08/23 0206 98.2 73 16 100/42 93 Nasal 2.0 Cannula 08/23 0123 Nasal 2.0 Cannula 08/23 0120 2.0 08/22 2228 98.2 71 16 109/55 92 Nasal 2.0 Cannula 08/22 1958 2.0 08/22 1827 97.7 75 18 97/45 98 Nasal 2.0 Cannula 08/22 1426 97.9 70 18 102/44 97 Nasal 2.0 Cannula 08/22 1400 2.0 08/22 1227 98.1 71 18 96/53 96 Nasal 2.0 Cannula I&O 08/22 0800 08/22 1600 08/23 0000 Intake Total 240 1218 Output Total 75 500 Balance 165 718 General Appearance Alert, Oriented X3, Cooperative, No acute distress Lungs Clear to auscultation Cardiovascular Regular rate and rhythm Abdomen Normal bowel sounds, Soft, No tenderness, No guarding, No rebound Extremities No cyanosis, No clubbing, No edema, No tenderness Skin No Rashes LAB Results Laboratory Tests 08/22 08/22 08/22 08/22 1310 1440 1645 2042 Chemistry Plasma Sodium (136 - 145 mmol/L) 137 Plasma Potassium (3.5 - 5.1 mmol/L) 4.5 Plasma Chloride (98 - 107 mmol/L) 100 CO2 (Enzymatic) (21 - 32 mmol/L) 31 BUN (7 - 18 mg/dL) 24 Creatinine (0.6 - 1.3 mg/dL) 1.3 Est GFR ( Amer) (mL/min) >60 Est GFR (Non-Af Amer) (mL/min) 55.63 Glucose (70 - 110 mg/dL) 142 Plasma Calcium (8.5 - 10.1 mg/dL) 9.0 Plasma Magnesium (1.8 - 2.4 mg/dL) 1.7 Total Bilirubin (0.0 - 1.0 mg/dL) 0.7 AST (15 - 37 U/L) 21 ALT (12 - 78 U/L) 17 Alkaline Phosphatase (46 - 116 U/L) 94 Creatine Kinase (24 - 260 U/L) 55 Troponin (0.00 - 1.5 ng/mL) <0.05 B-Natriuretic Peptide (5 - 100 pg/ml) 110 Total Protein (6.4 - 8.2 g/dL) 6.2 Albumin (3.3 - 5.0 g/dL) 2.7 Hematology WBC (4.5 - 11.5 K/uL) 9.3 RBC (4.50 - 5.90 M/uL) 3.48 Hgb (13.5 - 17.5 gm/dL) 10.6 Hct (41.0 - 53.0 %) 32.3 MCV (80 - 100 fL) 93 MCH (26 - 34 pg) 30 RDW (11.6 - 14.8 %) 14.4 Neut % (Auto) (50 - 75 %) 78.9 Lymph % (Auto) (25 - 40 %) 8.2 [place] % (Auto) (3 - 14 %) 10.6 Eos % (Auto) (0 - 4 %) 2.3 Baso % (Auto) (0 - 2 %) 0 Plt Count, EDTA (150 - 400 K/uL) 304 PUBS MCHC (31 - 37 g/dL) 33 Other Body Source Fluid Type PLEURAL Fluid Color YELLOW Fluid Appearance (CLEAR) CLEAR Fluid WBC (WBC/mm3) 760 Fluid RBC (RBC/mm3) 00696 Fluid Seg Neutrophil % (%) 14 Fluid Mononuclear Cell (%) 86 Fluid Glucose (mg/dL) 138 Fluid Total Protein (g/dl) 3.6 Fluid LDH (IU/L) 302 Urines Urine Color YELLOW Urine Appearance CLEAR Urine pH (5.0 - 8.0) 5.0 Ur Specific [place] (1.010 - 1.030) >= 1.030 Urine Protein (NEGATIVE) NEGATIVE Urine Ketones (NEGATIVE) TRACE Urine Blood (NEGATIVE) NEGATIVE Urine Nitrite (NEGATIVE) NEGATIVE Urine Bilirubin (NEGATIVE) NEGATIVE Urine Urobilinogen (0.2 - 1.0 EU/dL) 0.2 Ur Leukocyte Esterase (NEGATIVE) NEGATIVE Urine RBC (0 - 1 rbc/hpf) 1-3 Urine WBC (0 - 1 wbc/hpf) 0-1 Ur Epithelial Cells (0 - 5 EPI/hpf) 0-1 Urine Bacteria (NONE SEEN) NONE SEEN Urine Glucose (NEGATIVE) NEGATIVE Urine Comment CULT NOT INDICATED 08/22 044 0441 0441 0441 Chemistry Plasma Sodium (136 - 145 mmol/L) 138 Plasma Potassium (3.5 - 5.1 mmol/L) 4.3 Plasma Chloride (98 - 107 mmol/L) 104 CO2 (Enzymatic) (21 - 32 mmol/L) 29 BUN (7 - 18 mg/dL) 27 Creatinine (0.6 - 1.3 mg/dL) 1.1 Est GFR ( Amer) (mL/min) >60 Est GFR (Non-Af Amer) (mL/min) >60 Glucose (70 - 110 mg/dL) 105 Hemoglobin A1c % (4.5 - 6.2 %) 6.7 Plasma Calcium (8.5 - 10.1 mg/dL) 7.8 Plasma Magnesium (1.8 - 2.4 mg/dL) 1.9 Total Bilirubin (0.0 - 1.0 mg/dL) 0.5 AST (15 - 37 U/L) 20 ALT (12 - 78 U/L) 16 Alkaline Phosphatase (46 - 116 U/L) 76 Creatine Kinase (24 - 260 U/L) 73 56 Troponin (0.00 - 1.5 ng/mL) <0.05 <0.05 B-Natriuretic Peptide (5 - 100 pg/ml) 114 Total Protein (6.4 - 8.2 g/dL) 5.1 Albumin (3.3 - 5.0 g/dL) 2.2 Hematology WBC (4.5 - 11.5 K/uL) 7.4 RBC (4.50 - 5.90 M/uL) 3.06 Hgb (13.5 - 17.5 gm/dL) 9.1 Hct (41.0 - 53.0 %) 28.4 MCV (80 - 100 fL) 93 MCH (26 - 34 pg) 30 RDW (11.6 - 14.8 %) 14.4 Neut % (Auto) (50 - 75 %) 65.6 Lymph % (Auto) (25 - 40 %) 15.9 [place] % (Auto) (3 - 14 %) 12.8 Eos % (Auto) (0 - 4 %) 5.7 Baso % (Auto) (0 - 2 %) 0 Plt Count, EDTA (150 - 400 K/uL) 272 PUBS MCHC (31 - 37 g/dL) 32 Microbiology Date/Time Procedure - Status Source Growth 08/22 164 Fungal Culture - RECD PLE 08/22 164 Fungal Smear - RECD PLE 08/22 164 Acid Fast Bacilli (AFB) Sensitivity - RECD PLE 08/22 1645 Mycobacterium gordanae DNA Probe - RECD PLE 08/22 1645 Mycobacterium [place]ii DNA Probe - RECD PLE 08/22 1645 Mycobact. avium Complex DNA Probe - RECD PLE 08/22 1645 M.tuberculosis Complex DNA Probe - RECD PLE 08/22 1645 Acid Fast Bacilli Culture - RECD PLE 08/22 1645 Acid Fast Bacilli Smear - RECD PLE 08/22 1645 Anaerobic Culture - RES PLE 08/22 1645 Body Fluid Culture - RES PLE 08/22 1645 Gram Stain - RES PLE Assessment and Plan Problem List 1. Diabetes mellitus type 2 in nonobese Plan Stable on present meds. 2. Bladder cancer Plan Ongoing BCG treatments. 3. COPD (chronic obstructive pulmonary disease) Plan Stable 4. Mass of right lung Plan Surgery consult. Cytology pending. 5. Skin lesion of back Plan Surgery consult. 6. Pleural effusion Plan Aspirated per radiology. Cytology pending.
[2016-08-23 11:05] VITALS: BP 110/62
[2016-08-23 14:37] VITALS: BP 116/62
[2016-08-23 18:47] VITALS: BP 125/67
--- NOTE | 2016-08-23 20:28 | CONSULTATION REPORT ---
DATE OF CONSULTATION: 08/23/2016 REFERRING PHYSICIAN: Jon Mullins MD CHIEF COMPLAINT: 1. Subcutaneous mass of back 2. Lung lesion HISTORY OF PRESENT ILLNESS: The patient is an 86-year-old man who was admitted to the hospital for weakness and a fall. He had general fatigue and malaise, shortness of breath. Since being in the hospital, he underwent a CT scan demonstrating an 8.7 x 3.8 cm soft tissue lesion in the right upper lobe, highly suspicious for neoplasm. He also had a right pleural effusion, which has undergone thoracentesis and specimens have been sent off as of yesterday. He has calcific plaques on both sides consistent with asbestosis. He has a pericardial sinking, beginning possibly as a small effusion. The patient additionally had a lesion on his back in the subcutaneous tissue, which originally was small and stable, but recently started enlarging. It has, however , stayed soft, though it is a little bit irritating to him. MEDICAL/SURGICAL HISTORY: Past medical history: Includes BPH, diabetes, diabetic retinopathy and neuropathy, malignant tumor of the bladder, being treated with intracystic BCG, hypercholesterolemia, basal cell carcinoma, and atherosclerosis with intermittent claudication. 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 He has undergone previous hernia repairs, carpal tunnel surgery, cystoscopy, tumor resection, knee replacement and carpal tunnel repair. MEDICATIONS: Current outpatient medications: 1. Flomax. 2. Calcium and vitamin supplements. 3. Aspirin 81 mg a day. 4. Hydrochlorothiazide 25 daily. 5. Carvedilol 3.125 daily. 6. Lipitor 10 mg daily. 7. Lisinopril 40 mg daily. ALLERGIES: 1. WELLBUTRIN. 2. TRAMADOL. 3. PENICILLIN. SOCIAL HISTORY: The patient is and retired, formerly at the [employer]. He is [place] in ethnic origin. The patient is a former smoker, he quit at age 30. He does not take alcohol. FAMILY HISTORY: Father is age 80. Mother age 75. There is no specific history of neoplasms. REVIEW OF SYSTEMS: A multipoint review of systems is in the chart per Dr. Mullins, obtained on 08/22/2016. This is reviewed and confirmed. PHYSICAL EXAMINATION: GENERAL: The patient is alert and cooperative. At this point, he is not in severe distress. HEENT: His ears and nose demonstrated no gross external lesions. His eyes are equal. PSYCHIATRIC: His mental status is normal. He is oriented to time and place. CHEST: Auscultated. There are decreased breath sounds on the right side. HEART: Regular, without murmur. ABDOMEN: Reveals a soft abdomen with healed scars. EXTREMITIES: Bilateral femoral pulses are palpable. BACK: Examination of his back demonstrates a 4 or 5 cm mass with a central area of softness, but no true fluctuance. There is a little dimple right in the center. This is suspicious for an inclusion cyst that has recently expanded to become irritated or ruptured. IMPRESSION: 1. Lung lesion with pleural effusion, highly suspicious for neoplasm. 2. Back lesion, most likely subcutaneous cyst. PLAN: 1. At this point, the lung lesion is the definite priority. There is a cytology pending as of yesterday and if this pleural fluid offers a definitive diagnosis, it will also render him unresectable, at that point. I would recommend waiting for the results of his thoracentesis before further recommendations. 2. The back lesion can be excised at some point and that can be set up in the near future, especially if it becomes more and more irritated.
[2016-08-23 22:42] VITALS: BP 134/75
[2016-08-24 06:35] VITALS: BP 110/54
--- NOTE | 2016-08-24 07:36 | Progress Note ---
Subjective General 86yo with copd and worsening pleural effusion since recent pneumonia. Suspicious right lung lesion and nodes by CXR and CT. Thoracentesis done x 1550 ml dark zay fluid, mostly RBC. Cytology pending. Pt denies pain or nausea. Feeling a bit better overall but still sob with exertion. Tolerating ambulation to bathroom. Physical Exam Vital Signs / I&Os Vital Signs Date Time Temp Pulse Resp B/P Pulse O2 O2 Flow FiO2 Ox Delivery Rate 08/24 0635 98.1 85 21 110/54 94 Nasal 2.0 Cannula 08/24 0123 2.0 08/23 2242 98.4 75 18 134/75 94 Nasal 2.0 Cannula 08/23 2030 Nasal 2.0 Cannula 08/23 1949 2.0 08/23 1847 98.6 80 18 125/67 95 Nasal 2.0 Cannula 08/23 1437 98.2 72 18 116/62 94 Nasal 2.0 Cannula 08/23 1433 2.0 08/23 1105 98.1 71 18 110/62 95 Nasal 2.0 Cannula 08/23 0801 2.0 08/23 0755 Nasal 2.0 Cannula I&O 08/23 0800 08/23 1600 08/24 0000 Intake Total 1142 600 900 Output Total 350 650 675 Balance 792 -50 225 General Appearance Alert, Oriented X3, Cooperative, No acute distress Lungs Shallow breath sounds bilaterally. Cardiovascular Regular rate and rhythm Abdomen Normal bowel sounds, Soft, No tenderness Extremities No cyanosis, No clubbing, No edema Skin No Rashes LAB Results Laboratory Tests 08/24 0630 Chemistry Plasma Sodium Pending Plasma Potassium Pending Plasma Chloride Pending CO2 (Enzymatic) Pending BUN Pending Creatinine Pending Est GFR ( Amer) Pending Est GFR (Non-Af Amer) Pending Glucose Pending Plasma Calcium Pending Plasma Magnesium Pending Total Bilirubin Pending AST Pending ALT Pending Alkaline Phosphatase Pending Total Protein Pending Albumin Pending Hematology WBC (4.5 - 11.5 K/uL) 8.6 RBC (4.50 - 5.90 M/uL) 3.12 Hgb (13.5 - 17.5 gm/dL) 9.3 Hct (41.0 - 53.0 %) 28.8 MCV (80 - 100 fL) 92 MCH (26 - 34 pg) 30 RDW (11.6 - 14.8 %) 14.4 Neut % (Auto) (50 - 75 %) 71.9 Lymph % (Auto) (25 - 40 %) 10.9 [place] % (Auto) (3 - 14 %) 13.4 Eos % (Auto) (0 - 4 %) 3.5 Baso % (Auto) (0 - 2 %) 0.3 Plt Count, EDTA (150 - 400 K/uL) 307 PUBS MCHC (31 - 37 g/dL) 32 Assessment and Plan Problem List 1. Diabetes mellitus type 2 in nonobese Plan Stable. 2. COPD (chronic obstructive pulmonary disease) Plan Stable on oxygen. Will ambulate with walker to see if tolerated and if pt will need home O2. 3. Pleural effusion Plan Pathology pending.
[2016-08-24 10:31] VITALS: BP 107/52
--- NOTE | 2016-08-24 12:16 | Provider's Discharge Care Plan ---
Problem, Goal, Plan Problem List 1. COPD (chronic obstructive pulmonary disease) 2. Diabetes mellitus type 2 in nonobese 3. Mass of right lung 4. Pleural effusion 5. Hypotension
--- NOTE | 2016-08-24 12:22 | Provider's Discharge Care Plan ---
Problem, Goal, Plan Problem List 1. COPD (chronic obstructive pulmonary disease) Goals: Improve disease control Instructions: Take meds as directed 2. Diabetes mellitus type 2 in nonobese Goals: Improved health/wellness Instructions: Take meds as directed 3. Bladder cancer Goals: Improve disease control Instructions: Continue BCG treatment as planned. 4. Pleural effusion Goals: Improved health/wellness Instructions: Test results are pending. 5. Hypotension Goals: Improved health/wellness Instructions: Stop blood pressure meds as BP was too low. 6. Mass of right lung Goals: Improved health/wellness Instructions: Test results are pending
== END 2016-08-24 14:40 | disposition home or self-care (01) ==
LOC: ACUTE2 SRH 12:05
PROVIDERS: ADMIT Family Medicine
PROC: 0W993ZZ Drainage of Right Pleural Cavity, Percutaneous Approach (ICD-10-PCS; principal; 2016-08-22)
DX: J90 Pleural effusion, not elsewhere classified (principal); R91.8 Other nonspecific abnormal finding of lung field; R42 Dizziness and giddiness; C67.9 Malignant neoplasm of bladder, unspecified; I10 Essential (primary) hypertension; J44.9 Chronic obstructive pulmonary disease, unspecified; E11.42 Type 2 diabetes mellitus with diabetic polyneuropathy; E11.319 Type 2 diabetes mellitus with unspecified diabetic retinopathy without macular edema; Z87.820 Personal history of traumatic brain injury

== ENCOUNTER 2016-09-05 10:48 | Outpatient (CLI) | payer OTHER ==
--- NOTE | 2016-09-05 13:13 | DIAGNOSTIC IMAGING REPORT ---
PROCEDURE: XR CHEST 1 VIEW INDICATION: Post lung biopsy (45 minutes). TECHNIQUE: Portable AP view (1300 hours) COMPARISON: Compared to chest x-ray and 08/22/[address] earlier today (09/05/2016). FINDINGS: Moderate parenchymal changes right mid lung with a moderate right pleural effusion. There is no evidence of pneumothorax after lung biopsy. There is evidence of asbestosis with calcified pleural plaques (left lung). Heart is of normal size. Tortuous aorta. Moderate degenerative change of the thoracic spine. IMPRESSION: 1. Status post right lung biopsy. No evidence of pneumothorax. 2. Moderate parenchymal changes in right mid lung with moderate right pleural effusion (no change). 3. The patient was discharged to the care of his and son, in satisfactory condition, with instructions to call me for any untoward symptoms (chest pain, shortness of breath).
--- NOTE | 2016-09-05 14:38 | DIAGNOSTIC IMAGING REPORT ---
PROCEDURE: CT LUNG/MEDIASTINUM BIOPSY CLINICAL INDICATION: Right lung mass versus pneumonia. Right pleural effusion. TECHNIQUE: Informed consent was obtained and the patient was advised of the usual risks and complications including infection, bleeding, allergy and pneumothorax. COMPARISON: Compared to a CT thorax on 08/22/2016. FINDINGS: Supine position. Following sterile preparation and 1% lidocaine local anesthetic, CT guidance was utilized to place a 19 gauge coaxial needle in the right lateral thorax and directed into an 8 cm dense area of consolidation in the right lateral midlung. Eight core biopsy samples were obtained with a 20-gauge biopsy instrument. The patient tolerated the procedure reasonably well. There is no evidence of pneumothorax on post biopsy CT images. The patient was transferred back to the main department for observation. IMPRESSION: 1. Successful CT-guided biopsy of right lung mass. 2. Followup chest x-rays are pending. All CT scans at this facility use dose modulation, iterative reconstruction, and/or weight-based dosing when appropriate to reduce radiation dose to as low as reasonably achievable.
== END 2016-09-05 23:00 ==
LOC: CT SRH 10:48
PROC: BW241ZZ Computerized Tomography (CT Scan) of Chest and Abdomen using Low Osmolar Contrast (ICD-10-PCS; principal; 2016-09-05)
PROC: 0BBK3ZX Excision of Right Lung, Percutaneous Approach, Diagnostic (ICD-10-PCS; principal; 2016-09-05)
DX: R91.8 Other nonspecific abnormal finding of lung field (principal)
CPT/HCPCS: 82445; 82583

== ENCOUNTER 2016-09-17 11:44 | Outpatient (CLI) | payer OTHER ==
--- NOTE | 2016-09-17 12:40 | DIAGNOSTIC IMAGING REPORT ---
PROCEDURE: CT HEAD W/WO CONTRAST INDICATION: DIZZINESS; LUNG CA TECHNIQUE: Noncontrast axial images. Following 100 ml of Isovue 300, axial images were repeated. Sagittal and coronal reformations. COMPARISON: None. FINDINGS: Brain and ventricles are normal. No evidence of an acute process or hemorrhage. No enhancing lesions are identified. Sinuses and mastoids are normal. IMPRESSION: 1. Negative head CT.
== END 2016-09-17 23:00 ==
LOC: CT SRH 11:44
DX: R42 Dizziness and giddiness (principal); C34.90 Malignant neoplasm of unspecified part of unspecified bronchus or lung; D64.9 Anemia, unspecified

== ENCOUNTER 2016-09-26 08:32 | Outpatient (CLI) | payer OTHER ==
--- NOTE | 2016-09-26 10:50 | DIAGNOSTIC IMAGING REPORT ---
PROCEDURE: CT HEAD W/WO CONTRAST INDICATION: LUNG CA,STAGING TECHNIQUE: Noncontrast axial images. Following 125 CC of Isovue 300, axial images were repeated. Sagittal and coronal reformations. COMPARISON: Head CT 09/17/2016 FINDINGS: Brain and ventricles are normal. No evidence of an acute process or hemorrhage. No enhancing lesions are identified. Sinuses and mastoids are normal. IMPRESSION: 1. Negative head CT.
--- NOTE | 2016-09-26 11:36 | DIAGNOSTIC IMAGING REPORT ---
PROCEDURE: CT THORAX ABD PELVIS W/CONT INDICATION: LUNG CA,STAGING TECHNIQUE: 125 ml of Isovue 300 injected intravenously and axial images were obtained of the entire thorax, abdomen, and pelvis with sagittal and coronal reformations. COMPARISON: CT chest 08/22/[address] abdomen/pelvis 03/17/2012. FINDINGS: THORAX: Progression of inhomogeneous consolidation and volume loss of the right middle, right lower and posterior right upper lobes. Progression of large right pleural effusion with decreasing aeration of the upper lobe. Stable enlarged right paratracheal, pretracheal, AP window and subcarinal lymph nodes. Left lung is clear. Calcified bilateral pleural and right diaphragmatic plaques. Moderate atherosclerosis of the aorta. Extensive coronary atherosclerosis. Normal heart size. Resolved small pericardial effusion. Severe degenerative changes of the spine. ABDOMEN: Liver, gallbladder, pancreas, spleen and adrenal glands are normal. Mild renal cortical thinning. Severe atherosclerosis. Stable 3.1 cm infrarenal abdominal aortic aneurysm. Stable 3.4 cm fat-containing midline supraumbilical ventral hernia. Nonspecific bowel gas pattern. Severe degenerative changes of the spine. PELVIS: Appendix not visualized. Mild sigmoid diverticulosis. Mildly enlarged prostate. Bladder is unremarkable. No pelvic mass or free fluid. Severe atherosclerosis of the iliac and femoral vessels. Degenerative changes of the SI joints. IMPRESSION: 1. Progression of inhomogeneous consolidation of the posterior right upper, middle and lower lobes with progression of large right pleural effusion and stable mediastinal adenopathy. No evidence of distant metastases. 2. Calcified bilateral pleural and right diaphragmatic plaques consistent with asbestosis 3. Stable 3.1 cm infrarenal abdominal aortic aneurysm 4. Stable 3.4 cm fat-containing midline supraumbilical ventral hernia 5. Severe diffuse atherosclerosis All CT scans at this facility use dose modulation, iterative reconstruction, and/or weight-based dosing when appropriate to reduce radiation dose to as low as reasonably achievable.
== END 2016-09-26 23:00 ==
LOC: CT SRH 08:32 → LAB SRH 08:32 → CT SRH 10:00
DX: C34.91 Malignant neoplasm of unspecified part of right bronchus or lung (principal)
CPT/HCPCS: 90074; 91631; 92560

== ENCOUNTER 2016-10-04 11:54 | Outpatient (CLI) | payer OTHER ==
--- NOTE | 2016-10-04 14:30 | DIAGNOSTIC IMAGING REPORT ---
PROCEDURE: US THORACENTESIS WO TUBE-RIGHT INDICATION: Lung carcinoma. Shortness of breath. COMPARISON: Comparison to is made to CT thorax on 09/26/2016 and ultrasound thoracentesis (08/22/2016). TECHNIQUE: Informed consent was obtained and the patient was advised of the usual risks and complications including infection, bleeding, allergy and pneumothorax. position. Following sterile preparation and 1% lidocaine local anesthetic, ultrasound guidance was utilized to place a 16-gauge angiocatheter in the right posterolateral thorax. 2400 ml of dark serous fluid was aspirated with specimen sent for cytology. The patient tolerated the procedure well and was discharged home to the care of his , in satisfactory condition, with instructions to call for any untoward symptoms (chest pain, shortness of breath). IMPRESSION: 1. Successful ultrasound-guided diagnostic/therapeutic right thoracentesis (2400 ml fluid).
== END 2016-10-04 23:00 ==
LOC: US SRH 11:54
PROC: 0W993ZZ Drainage of Right Pleural Cavity, Percutaneous Approach (ICD-10-PCS; principal; 2016-10-04)
PROC: BB4BZZZ Ultrasonography of Pleura (ICD-10-PCS; principal; 2016-10-04)
DX: J90 Pleural effusion, not elsewhere classified (principal); D64.9 Anemia, unspecified